=== PATIENT | male | born 1960 | race Caucasian/White ===

== ENCOUNTER 2020-01-05 14:03 | Inpatient (IN) ==
[2020-01-05] MEDS ORDERED: MoRPHine SULFATE 4 MG/ML 1 ML CARP\\VIAL IV STA (14:33)
[2020-01-05] MEDS ORDERED: cefTRIAXone SODIUM 2,000 MG/70 ML BAG IV STA (14:33)
[2020-01-05] MEDS ORDERED: ONDANSETRON INJ 2 MG/ML 2 ML VIAL IV STA ×2 (14:33)
[2020-01-05] MEDS ORDERED: SODIUM CHLORIDE 0.9% 1000ML 1,000 ML IV SCH (14:45)
--- NOTE | 2020-01-05 14:46 | Emergency Department Note ---
Impression & Plan Abscess of chest wall, Cellulitis of chest wall ED Provider Note NAME: PHILIP SOLIZ AGE: 59 SEX: M : 1960 ARRIVES VIA: Walk-In INFORMANT: Patient, ED PROVIDER(S): Marlon James MD Chief Complaint: Infection, chest wall pain HPI: Patient does present as a referral from primary care office due to concern for a chest wall infection. The patient states that he had some pain beginning Sunday that was sharp in nature. He has noticed some redness that developed on Sunday. There was some bleeding on Sunday and Sunday. The patient has taken Tylenol which is only mild improved his discomfort. Patient does describe it is constant and worsened with palpation. The patient denies a history of immun osuppression or diabetes. The patient has not had any true fevers at home or at the primary care's office. ROS: See HPI for pertinent positives and negatives. A total of 10 systems were reviewed and otherwise negative. Past medical history: See below Surgical history: See below Social history: See below Physical Exam: GENERAL: Wearing glasses and a mask, mildly uncomfortable in appearance. NAD, non-toxic. EYE EXAM: Normal conjunctiva. PERRL, no anisocoria and EOM's grossly intact w/o pain. NECK: Supple, no nuchal rigidity, no adenopathy, non-tender. No signs of meningismus. Chest: 12 x 8 cm area of redness with induration that is centralized just lateral to the right nipple, no obvious drainage, mild TTP. No crepitus noted. Small area opening at the inframammary fold approximately quarter by quarter centimeter. No active drainage LUNGS: Clear to auscultation. Normal chest wall mechanics. HEART: NSR, no MRG. ABDOMEN: Abdomen soft, non-tender, normo-active bowel sounds, no masses, no rebound or guarding. BACK: No CVA TTP. SKIN: Cellulitic changes as noted above. UPPER EXTREMITIES: Upper extremities are grossly normal. LOWER EXTREMITIES: Grossly normal, no edema. NEURO EXAM: A&O x3, cranial nerves II-XII grossly intact, normal speech, moves all 4 extremities on command w/o issue. Differential diagnoses: Cellulitis, abscess, MRSA infection, DVT, necrotizing fasciitis, dermatitis, drug eruption, allergic reaction, as well as other pathologies. Course: Patient was seen and evaluated the bedside. Full history physical exam was performed. EKG: None Imaging Studies: Radiology results as stated below per my review in the radiologist's interpretation: Cardiac monitoring: An order was placed for continuous cardiac monitoring. The monitor shows a rate of 89 with sinus rhythm. Procedures: [id number] ultrasound Indication: Review of abscess Upon review the patient does have extensive cobblestoning in an area that does appear well-circumscribed pocket of fluid without vascularity. Impression: Likely abscess Incision & Drainage Indication: Abscess. Location: Right chest Verbal consent was obtained after the risks and benefits were explained, including but not limited to bleeding, scarring, infection, pain, and bone/joint/nerve damage. At this time, the risks of the procedure are less than the risks of NOT performing the procedure. A time out was taken and the correct patient and site identified. The skin was prepped with betadine and a sterile field set. The wound was anesthetized with 4 ml of 1% lidocaine without epinephrine. The abscess cavity was entered with an 18-gauge needle which was aspirated and purulent material expressed. This continued to actively drain along with 3 cc in the syringe. Was sent for wound culture debridement was not performed. Packing placed and a sterile dressing applied. Detailed wound care instructions and signs and symptoms of worsening infection reviewed with the patient. No complications and the patient tolerated the procedure well. MDM: Patient does present from PCP office due to concern for expanding redness over the right chest. Patient did a blood work completed was given IV Rocephin. Asiyr-sg-[id number] ultrasound was completed. Patient did receive pain medication and IV fluids. Patient does have mild white count of 15. INR is slightly elevated at 3.9. Kidney function is unremarkable with trace elevations in AST. I did perform a bedside [id number] ultrasound which showed a likely area of abscess. Given the patient's hypercoagulability I did discuss that we would likely just try and attempting needle aspiration. He is agreeable to this. Patient did tolerate his needle aspiration without complication. I did reassess with an bedside ultrasound which not show any continued obvious pocket of fluid. It is being the overall hospitalist given the extensive cellulitis cellulitis and abscess. Patient was also admitted to the medicine service. The patient did receive vancomycin and Rocephin. Wound culture pending. Past Med/Surg History Medical History (Updated 01/05/20 @ 18:32 by Ashok Mccoy MD) DVT (deep venous thrombosis) History of retinal detachment Surgical History History of colonoscopy History of eye surgery History of lithotripsy History of prostatectomy Status post biopsy of kidney Family History Unknown Diabetes Heart disease Lung cancer History of nephrolithiasis Social History Smoking Status: Never smoker Hx Alcohol Use: Yes current occupational status: employed current occupation: field software engineer Feels Safe at Home: Yes Allergies Allergies Allergy/AdvReac Type Severity Reaction Status Date / Time doxycycline Allergy Intermediate HIVES Verified 01/05/20 15:15 Home Meds Home Medications Medication Instructions Recorded Confirmed cyanocobalamin (vitamin B-12) 0 mcg PO DAILY 01/05/20 01/05/20 [Vitamin B-12] folic acid 1 mg PO DAILY 01/05/20 01/05/20 loratadine [Claritin] 10 mg PO DAILY PRN 01/05/20 01/05/20 multivitamin 1 tab PO DAILY 01/05/20 01/05/20 vit A,C and G-hzlqoj-kkvxlzzg [Eye 1 tab PO DAILY 01/05/20 01/05/20 Health Plus Lutein] warfarin 10 - 11 mg PO UD 01/05/20 01/05/20 Results & Data (ED) Vital Signs Vital Signs - 24 hr 01/05/20 14:07 01/05/20 16:47 01/05/20 17:56 Temperature 36.9 C Temperature Source Oral Pulse Rate 89 Pulse Rate [Right Finger] 75 75 Pulse Rhythm Regular Respiratory Rate 20 22 22 Respiratory Effort / Characteristics Non-Labored Non-Labored Spontaneous Non-Labored Spontaneous Respiratory Depth Normal Normal Normal Respiratory Pattern Regular Regular Regular Blood Pressure 154/94 H Blood Pressure [Right Arm] 150/88 H 161/87 H Blood Pressure Mean 114 Blood Pressure Mean [Right Arm] 108 111 Blood Pressure Position Sitting Blood Pressure Position [Right Arm] Lying Sitting Pulse Oximetry 96 94 96 Oxygen Delivery Method Room Air Room Air Room Air Sepsis Recent Fever Within 48 Hours No Sepsis New/Unexplained Change in Mental Status No Sepsis Action Taken by Nursing No Action Required Home Medications Current Medication List: was personally reviewed by me Laboratory Data Attestation: I reviewed the patient's lab results. Result diagrams: 01/05/20 15:00 01/05/20 14:56 Lab Results 01/05/20 01/05/20 01/05/20 Range/Units 14:56 14:56 14:56 WBC (4.8-10.8) K/uL RBC (4.7-6.1) M/uL Hgb (14.0-18.0) g/dL Hct (42-52) % MCV (80-100) fL MCH (25-34) pg MCHC (32-36) g/dL RDW Std Deviation (36.4-46.3) fL RDW Coeff of Tatiana (11.5-14.5) % Plt Count (130-400) K/uL MPV (7.4-10.4) fL Immature Gran % (Auto) % Neut % (Auto) % Lymph % (Auto) % [place] % (Auto) % Eos % (Auto) % Baso % (Auto) % Neut # (Auto) (1.4-6.5) K/uL Lymph # (Auto) (1.2-3.4) K/uL [place] # (Auto) (0.11-0.59) K/uL Eos # (Auto) (0-0.5) K/uL Baso # (Auto) (0-0.2) K/uL Immature Gran # (Auto) (0.00-0.02) K/uL PT 38.2 H (9.0-12.0) Seconds INR 3.9 H (0.9-1.1) APTT 54.8 H* (21.0-31.0) Seconds PTT Ratio 2.0 Sodium 144 (136-145) mmol/L Potassium 4.4 (3.5-5.1) mmol/L Chloride 110 H (98-107) mmol/L Carbon Dioxide 29 (21-32) mmol/L Anion Gap 5.0 (3-11) BUN 15 (7-18) mg/dl Creatinine 1.13 (0.6-1.4) mg/dl Est Cr Clr Drug Dosing 107.5 ml/min Est GFR ( Amer) 81.4 Est GFR (Non-Af Amer) 70.3 BUN/Creatinine Ratio 12.9 (10-20) Glucose 85 (70-99) mg/dl Lactate 1.0 (0.4-2.0) mmol/L Calcium 8.9 (8.5-10.1) mg/dl Magnesium 2.1 (1.8-2.4) mg/dl Total Bilirubin 0.7 (0.2-1) mg/dl AST 38 H (15-37) U/L ALT 72 (12-78) U/L Alkaline Phosphatase 86 (45-117) U/L Total Protein 7.1 (6.4-8.2) gm/dl Albumin 3.2 L (3.4-5.0) gm/dl Globulin 3.9 (2.5-4.0) gm/dl Albumin/Globulin Ratio 0.8 L (0.9-2) TSH 1.520 (0.300-4.500) uIu/ml 01/05/20 Range/Units 15:00 WBC 15.01 H (4.8-10.8) K/uL RBC 5.11 (4.7-6.1) M/uL Hgb 15.4 (14.0-18.0) g/dL Hct 45.2 (42-52) % MCV 88.5 (80-100) fL MCH 30.1 (25-34) pg MCHC 34.1 (32-36) g/dL RDW Std Deviation 44.4 (36.4-46.3) fL RDW Coeff of Tatiana 13.6 (11.5-14.5) % Plt Count 243 (130-400) K/uL MPV 9.8 (7.4-10.4) fL Immature Gran % (Auto) 0.7 % Neut % (Auto) 65.3 % Lymph % (Auto) 16.4 % [place] % (Auto) 12.5 % Eos % (Auto) 4.8 % Baso % (Auto) 0.3 % Neut # (Auto) 9.81 H (1.4-6.5) K/uL Lymph # (Auto) 2.46 (1.2-3.4) K/uL [place] # (Auto) 1.87 H (0.11-0.59) K/uL Eos # (Auto) 0.72 H (0-0.5) K/uL Baso # (Auto) 0.05 (0-0.2) K/uL Immature Gran # (Auto) 0.10 H (0.00-0.02) K/uL PT (9.0-12.0) Seconds INR (0.9-1.1) APTT (21.0-31.0) Seconds PTT Ratio Sodium (136-145) mmol/L Potassium (3.5-5.1) mmol/L Chloride (98-107) mmol/L Carbon Dioxide (21-32) mmol/L Anion Gap (3-11) BUN (7-18) mg/dl Creatinine (0.6-1.4) mg/dl Est Cr Clr Drug Dosing ml/min Est GFR ( Amer) Est GFR (Non-Af Amer) BUN/Creatinine Ratio (10-20) Glucose (70-99) mg/dl Lactate (0.4-2.0) mmol/L Calcium (8.5-10.1) mg/dl Magnesium (1.8-2.4) mg/dl Total Bilirubin (0.2-1) mg/dl AST (15-37) U/L ALT (12-78) U/L Alkaline Phosphatase (45-117) U/L Total Protein (6.4-8.2) gm/dl Albumin (3.4-5.0) gm/dl Globulin (2.5-4.0) gm/dl Albumin/Globulin Ratio (0.9-2) TSH (0.300-4.500) uIu/ml Administered Medications Discontinued Medications Acetaminophen (Tylenol) 650 mg PO NOW STA Stop: 01/05/20 17:33 Last Admin: 01/05/20 17:52 Dose: 650 mg Documented by: [id number] Sodium Chloride (Nss 1000ml) 1,000 mls @ 999 mls/hr IV .Q1H1M RICARDA Stop: 01/05/20 15:45 Last Infusion: 01/05/20 16:30 Dose: 0 mls/hr Documented by: [id number] Admin: 01/05/20 15:20 Dose: 999 mls/hr Documented by: [id number] Ceftriaxone Sodium (Rocephin) 2,000 mg in 70 mls @ 140 mls/hr IV NOW STA Stop: 01/05/20 15:02 Last Infusion: 01/05/20 15:50 Dose: 0 mls/hr Documented by: [id number] Admin: 01/05/20 15:19 Dose: 140 mls/hr Documented by: [id number] Lidocaine/Epinephrine (Xylocaine/Epinephrine 1%) 20 ml INFIL NOW ONE Stop: 01/05/20 16:07 Last Admin: 01/05/20 16:34 Dose: 20 ml Documented by: [id number] Morphine Sulfate (Morphine Sulfate) 4 mg IV NOW STA Stop: 01/05/20 14:34 Last Admin: 01/05/20 15:19 Dose: 4 mg Documented by: [id number] Morphine Sulfate (Morphine Sulfate) 2 mg IV NOW STA Stop: 01/05/20 17:33 Last Admin: 01/05/20 17:53 Dose: 2 mg Documented by: [id number] Ondansetron HCl (Zofran) 4 mg IV NOW STA Stop: 01/05/20 14:34 Last Admin: 01/05/20 15:19 Dose: 4 mg Documented by: [id number] Ondansetron HCl (Zofran) 4 mg IV NOW STA Stop: 01/05/20 14:34 Last Admin: 01/05/20 15:50 Dose: Not Given Documented by: [id number] Discharge Plan Visit Data Chief Complaint: Infection, Wound Stated Complaint: INFECTION IN RT BREAST,OPEN WOUND ED Provider: Marlon James Discharge Problem: Abscess of chest wall, Cellulitis of chest wall Forms Stand Alone Forms: [facility] Prescriptions Prescriptions: No Action warfarin 10 mg tablet 10 - 11 mg PO UD RF: 0 multivitamin Tablet 1 tab PO DAILY RF: 0 cyanocobalamin (vitamin B-12) [Vitamin B-12] 1,000 mcg Tablet 0 mcg PO DAILY RF: 0 folic acid 1 mg Tablet 1 mg PO DAILY RF: 0 loratadine [Claritin] 10 mg Tablet 10 mg PO DAILY PRN (Reason: Allergy Symptoms) RF: 0 [facility] Lutein 1,000 unit-200 mg-60 unit-2 mg Tablet 1 tab PO DAILY RF: 0
[2020-01-05 15:13] LABS: Basophils # (auto) 0.05 K/uL (0-0.2); Basophils % (auto) 0.3 %; Eosinophils # (auto) 0.72 K/uL (0-0.5); Eosinophils % (auto) 4.8 %; Hematocrit (blood only) 45.2 % (42-52); Hemoglobin 15.4 g/dL (14.0-18.0); Immature Granulocytes % (auto) 0.7 %; Lymphocytes # (auto) 2.46 K/uL (1.2-3.4); Lymphocytes % (auto) 16.4 %; Mean Corpuscular Hemoglobin 30.1 pg (25-34); Mean Corpuscular Hgb Conc 34.1 g/dL (32-36); Mean Corpuscular Volume 88.5 fL (80-100); Mean Platelet Volume 9.8 fL (7.4-10.4); Monocytes # (auto) 1.87 K/uL (0.11-0.59); Monocytes % (auto) 12.5 %; Neutrophils # (auto) 9.81 K/uL (1.4-6.5); Neutrophils % (auto) 65.3 %; Platelet Count 243 K/uL (130-400); RDW Coefficient of Variation 13.6 % (11.5-14.5); RDW Standard Deviation 44.4 fL (36.4-46.3); Red Blood Count 5.11 M/uL (4.7-6.1); White Blood Count 15.01 K/uL (4.8-10.8)
[2020-01-05 15:30] LABS: Albumin Level 3.2 gm/dl (3.4-5.0); BUN Creatinine Ratio 12.9 (10-20); Calcium 8.9 mg/dl (8.5-10.1); Creatinine Clr Calc Pharmacy 107.5 ml/min; Est GFR (African American) 81.4; Est GFR (Non-African American) 70.3; Magnesium 2.1 mg/dl (1.8-2.4); Potassium 4.4 mmol/L (3.5-5.1)
[2020-01-05 15:36] LABS: INR 3.9 (0.9-1.1); Prothrombin Time 38.2 Seconds (9.0-12.0)
[2020-01-05 15:37] LABS: Partial Thromboplastin Time 54.8 Seconds (21.0-31.0)
[2020-01-05 15:39] LABS: Albumin Globulin Ratio 0.8 (0.9-2); Bilirubin,Total 0.7 mg/dl (0.2-1); Globulin 3.9 gm/dl (2.5-4.0); Thyroid Stimulating Hormone 1.52 uIu/ml (0.300-4.500); Total Protein 7.1 gm/dl (6.4-8.2)
[2020-01-05] MEDS ORDERED: LIDOCAINE/EPINEPHRINE 1% 20 ML VIAL INFIL ONE (16:06)
[2020-01-05] MEDS ORDERED: MoRPHine SULFATE 2 MG/ML CARP IV STA (17:32)
[2020-01-05] MEDS ORDERED: ACETAMINOPHEN 325 MG TAB PO STA (17:32)
[2020-01-05] MEDS ORDERED: VANCOMYCIN CONSULT ACTIVE PRN (17:54)
[2020-01-05] MEDS ORDERED: VANCOMYCIN HCL 2,750 MG in SODIUM CHLORIDE 0.9% 500 ML IV ONE (17:54)
--- NOTE | 2020-01-05 17:58 | Electrocardiogram Report ---
Test Reason : Blood Pressure : / mmHG Vent. Rate : 078 BPM Atrial Rate : 078 BPM P-R Int : 176 ms QRS Dur : 098 ms QT Int : 370 ms P-R-T Axes : 029 -18 046 degrees QTc Int : 421 ms Normal sinus rhythm Low voltage QRS Inferior infarct , age undetermined Abnormal ECG When compared with ECG of 21-DEC-2014 07:54, Inferior infarct is now Present Confirmed by Suhas Resendiz ([id number]) on 01/05/2020 5:58:19 PM Referred By: Emelina Clements Confirmed By:Marko Resendiz
--- NOTE | 2020-01-05 18:15 | History & Physical Report ---
Date of Service January 05, 2020 Assessment & Plan (1) Cellulitis of chest wall: Continue ceftriaxone and vancomycin pending cultures from abscess aspiration. (2) Abscess of chest wall: Drained with needle in ER. Consider re-imaging if pain increasing. (3) Obstructive sleep apnea: May use own CPAP at night (4) DVT (deep venous thrombosis): Chronic warfarin with aim 3. Will give 5mg PO today and repeat PTINR in AM. Usually takes 11mg PO twice a week and 10mg all other days. Admission and Anticipated Discharge Date Admission Date: 01/05/2020 History of Present Illness Chief Complaint: Chest wall infection Primary Care Provider: Emelina Clements Albert Pulido is a 59 year old male who presents to the ER with increasing erythema of his right chest wall and breast. He started feeling some mild pain 3 nights prior. No nights ago he started noticing the area becoming increasingly red and the area has just increased and become more painful gradually since. There has been some discharge with bleeding initially yesterday and some pus today. She patient was seen by his PCP today and advised to go to the ER for further management. No history of cellulitis or MRSA infections. Allergies Allergy/AdvReac Type Severity Reaction Status Date / Time doxycycline Allergy Intermediate HIVES Verified 01/05/20 15:15 Home Medications Home Medications Medication Instructions Recorded Confirmed Type cyanocobalamin (vitamin B-12) 0 mcg PO DAILY 01/05/20 01/05/20 History [Vitamin B-12] folic acid 1 mg PO DAILY 01/05/20 01/05/20 History loratadine [Claritin] 10 mg PO DAILY PRN 01/05/20 01/05/20 History multivitamin 1 tab PO DAILY 01/05/20 01/05/20 History vit A,C and G-aahwoc-tebuojrg [Eye 1 tab PO DAILY 01/05/20 01/05/20 History [facility] Plus Lutein] warfarin 10 - 11 mg PO UD 01/05/20 01/05/20 History Past Med/Surg History Medical History (Updated 01/06/20 @ 12:23 by Ashok Mccoy MD) DVT (deep venous thrombosis) History of retinal detachment Obstructive sleep apnea Surgical History History of colonoscopy History of eye surgery History of lithotripsy History of prostatectomy Status post biopsy of kidney Family History Unknown Diabetes Heart disease Lung cancer History of nephrolithiasis Social History Smoking Status: Never smoker Second Hand Exposure: No; Do You Dip or Chew Tobacco: No; Tobacco Cessation Education Requested by Patient: No Hx Alcohol Use: Yes Alcohol type: hard liquor Hx Substance Use: No Preferred Language: Indian Communication Ability: Effective Front Office Java Developer Required: No Beliefs That Will Affect Care: None Current Living Situation: Spouse current occupational status: employed current occupation: application software engineer Other Information That Helps Us Care for You: No Feels Safe at Home: Yes Safety Concerns: Feels Safe At This Time Review of Systems Review of Systems: All systems reviewed & are unremarkable except as noted in HPI & below Physical Exam Constitutional: WD/WN, vitals as above + morbidly obese Eyes: + anicteric sclerae; normal pupil size ENMT: external ear and nose normal, oropharynx normal Neck: trachea midline Respiratory: normal respiratory effort, lungs clear to auscultation Cardiovascular: Rate/Rhythm: regular rate and regular rhythm Extremities: + pedal edema (1+ to mid shins b/l) Gastrointestinal (Abdomen): Inspection/Auscultation: normal bowel sounds Percussion/Palpation: abdomen soft; abdomen nontender, no guarding and abdomen not rigid Musculoskeletal: no cyanosis or clubbing, extremities motor strength 5/5 (cramped calf muscle on left side) Skin: Large erythematous, warm cellulitis area covering right inferior breast tissue originating from under breast tissue with some skin breakdown, very tender to touch Neurologic: moves all extremities and awake; not confused Psychiatric: A+Ox3, euthymic affect Lymphatic: no cervical or axillary lymphadenopathy Results & Data Results & Data ([facility]) Vital Signs (Past 12 Hours) Vital Signs Temp Pulse Pulse Resp BP BP Pulse Ox 01/05/20 17:56 75 22 161/87 H 96 01/05/20 16:47 75 22 150/88 H 94 01/05/20 14:07 36.9 C 89 20 154/94 H 96 Code Status & VTE Plan Code Status Full VTE Prophylaxis Plan VTE Prophylaxis will be ordered: Yes PG Care Time/CCT Total # of Minutes Spent Total Time Spent with Patient: Total time spent is greater than 50% in coordination of care (as documented) at patient's floor/unit and/or counseling patient: Coding Level of Care Code 91601 OBS Care - Level 2 Diagnoses Cellulitis of chest wall L03.313 Abscess of chest wall L02.213 Obstructive sleep apnea G47.33 DVT (deep venous thrombosis) I82.502 Affected thrombotic vein of extremity: unspecified vein of extremity Chronicity: chronic DVT location: lower extremity Laterality: left (1) DVT (deep venous thrombosis) Affected thrombotic vein of extremity: unspecified vein of extremity Chronicity: chronic DVT location: lower extremity Laterality: left Qualified Code(s): I82.502 - Chronic embolism and thrombosis of unspecified deep veins of left lower extremity
[2020-01-05] MEDS ORDERED: MAGNESIUM HYDROXIDE SUSP 30 ML UDC PO PRN (19:44)
[2020-01-05] MEDS ORDERED: ALUMINUM/MAGNESIUM SUSP 30 ML UDC PO PRN (19:44)
[2020-01-05] MEDS ORDERED: ONDANSETRON INJ 2 MG/ML 2 ML VIAL IV PRN (19:44)
[2020-01-05] MEDS ORDERED: WARFARIN SOD 5 MG TAB PO ONE (20:00)
--- NOTE | 2020-01-05 20:09 | Pharmacy Report ---
Pharmacy Abx Dose Short Note - Date of Service January 05, 2020 - Assessment & Plan Assessment 59 year old M receiving Vancomycin for treatment of chest wall cellulitis/abscess Day # 1 of antimicrobial therapy. * Right breast culture pending * Pt BMI greater than 35 Plan Vancomycin for treatment of cellulitis Vancomycin IV * Estimated PK Parameters: Vd 0.6 L/kg, Brandon 0.094 hr-1, t1/2 7.3 hr * Loading dose: 2750 mg (17.5 mg/kg) * Maintenance dose: 2000 mg IV (12.7 mg/kg) every 12 hours * Goal trough level for cellulitis : 10 to 15 mcg/mL * Trough level ordered for 01/07/20 @1330 * A less than traditional dose and extended dosing interval have been selected due to likelihood of drug accumulation in obese patient Pharmacy will continue to follow and will adjust dose/frequency as necessary. Thank you.
[2020-01-05] MEDS ORDERED: OXYCODONE HCL IR 5 MG TAB (IMMEDIATE RELEASE) PO PRN ×2 (20:32)
[2020-01-06] MEDS: ACETAMINOPHEN 325 MG TAB PO PRN ×3 (01:01→17:20)
[2020-01-06] MEDS: VANCOMYCIN HCL 2,000 MG in SODIUM CHLORIDE 0.9% 500 ML IV SCH ×2 (01:41→14:07)
[2020-01-06 07:02] LABS: Basophils # (auto) 0.08 K/uL (0-0.2); Basophils % (auto) 0.6 %; Eosinophils # (auto) 0.83 K/uL (0-0.5); Eosinophils % (auto) 6.4 %; Immature Granulocytes % (auto) 0.8 %; Lymphocytes # (auto) 2.51 K/uL (1.2-3.4); Lymphocytes % (auto) 19.3 %; Mean Corpuscular Hemoglobin 29.6 pg (25-34); Mean Corpuscular Hgb Conc 33.3 g/dL (32-36); Mean Corpuscular Volume 88.8 fL (80-100); Monocytes # (auto) 1.58 K/uL (0.11-0.59); Monocytes % (auto) 12.2 %; Neutrophils # (auto) 7.88 K/uL (1.4-6.5); Neutrophils % (auto) 60.7 %; Platelet Count 212 K/uL (130-400); RDW Coefficient of Variation 13.8 % (11.5-14.5); RDW Standard Deviation 44.9 fL (36.4-46.3); Red Blood Count 5.07 M/uL (4.7-6.1); White Blood Count 12.98 K/uL (4.8-10.8)
[2020-01-06 07:17] LABS: INR 3.2 (0.9-1.1); Prothrombin Time 31.9 Seconds (9.0-12.0)
[2020-01-06 07:43] LABS: BUN Creatinine Ratio 14.3 (10-20); Calcium 8.7 mg/dl (8.5-10.1); Creatinine Clr Calc Pharmacy 128.9 ml/min; Est GFR (African American) 92.2; Est GFR (Non-African American) 79.5; Potassium 4.3 mmol/L (3.5-5.1)
[2020-01-06] MEDS: CYANOCOBALAMIN 500 MCG TABLET (VITAMIN B-12) PO SCH (08:05)
[2020-01-06] MEDS: FOLIC ACID 1 MG TAB PO SCH (08:05)
[2020-01-06] MEDS: MULTIVITAMIN TAB PO SCH (08:05)
[2020-01-06] MEDS: POLYETHYLENE (MIRALAX) 17 GM PACK PO PRN (08:10)
[2020-01-06] MEDS ORDERED: VIT A C AND E LUTEIN MINERALS PO SCH (09:00)
--- NOTE | 2020-01-06 11:57 | Hospitalist Progress Note ---
Date of Service January 06, 2020 Assessment & Plan (1) Cellulitis of chest wall: Continue ceftraixone and vancomycin pending cultures from abscess aspiration. Erythema appears that it has decreased. This has been delineated with a marker with the darker skin in the center also delineated. Once cultures are back, patient aurelio likely be able to switch to PO. If no improvement, may consider surgical consult for further debridement, rhis seems unlikely at this point. (2) Abscess of chest wall: (3) DVT (deep venous thrombosis): Chronic warfarin with aim 3. Will give 5mg PO today and repeat PTINR in AM. Usually takes 11mg PO twice a week and 10mg all other days. Admission and Anticipated Discharge Date Admission Date: January 05, 2020 Subjective 59 yo male reports feeling better. He notes his is changing his pad about every 2 hours. He notices decreased amount of purulent discharge and decreased pain. Review of Systems Review of Systems: All systems reviewed & are unremarkable except as noted in HPI & below Physical Exam Physical Exam: Constitutional: WD/WN, vitals as above + morbidly obese Eyes: + anicteric sclerae; normal pupil size ENMT: external ear and nose normal, oropharynx normal Neck: trachea midline Respiratory: normal respiratory effort, lungs clear to auscultation Cardiovascular: Rate/Rhythm: regular rate and regular rhythm Extremities: + pedal edema (1+ to mid shins b/l) Gastrointestinal (Abdomen): Inspection/Auscultation: normal bowel sounds Percussion/Palpation: abdomen soft; abdomen nontender, no guarding and abdomen not rigid Musculoskeletal: no cyanosis or clubbing, extremities motor strength 5/5 (cramped calf muscle on left side) Skin: Large erythematous, warm cellulitis area covering right inferior breast tissue originating from under breast tissue with some skin breakdown, decreased tenderness to touch Neurologic: moves all extremities and awake; not confused Psychiatric: A+Ox3, euthymic affect Lymphatic: no cervical or axillary lymphadenopathy Results & Data Results & Data ([facility]) Vital Signs (Past 12 Hours) Vital Signs Temp Pulse Resp BP Pulse Ox 01/06/20 06:56 36.7 C 65 20 135/73 94 PG Care Time/CCT Total # of Minutes Spent Total Time Spent with Patient: Total time spent is greater than 50% in coordination of care (as documented) at patient's floor/unit and/or counseling patient: Coding Level of Care Code 05898 Subseq Hosp Care Lvl 3 Diagnoses Cellulitis of chest wall L03.313 Abscess of chest wall L02.213 DVT (deep venous thrombosis) I82.502 Affected thrombotic vein of extremity: unspecified vein of extremity Chronicity: chronic DVT location: lower extremity Laterality: left Time Spent (min) 35 (1) DVT (deep venous thrombosis) Affected thrombotic vein of extremity: unspecified vein of extremity Chronicity: chronic DVT location: lower extremity Laterality: left Qualified Code(s): I82.502 - Chronic embolism and thrombosis of unspecified deep veins of left lower extremity
[2020-01-06] MEDS ORDERED: WARFARIN SOD 10 MG TAB PO ONE (16:00)
[2020-01-06] MEDS: LORATADINE 10 MG TAB PO SCH (16:23)
[2020-01-06] MEDS: cefTRIAXone SODIUM 2,000 MG in DEXTROSE 5% 50 ML IV SCH (16:50)
[2020-01-07] MEDS: VANCOMYCIN HCL 2,000 MG in SODIUM CHLORIDE 0.9% 500 ML IV SCH ×2 (01:56→14:17)
[2020-01-07 03:06] LABS: INR 3.2 (0.9-1.1); Prothrombin Time 31.9 Seconds (9.0-12.0)
[2020-01-07] MEDS: ACETAMINOPHEN 325 MG TAB PO PRN ×2 (03:30→14:24)
[2020-01-07] MEDS: MULTIVITAMIN TAB PO SCH (07:42)
[2020-01-07] MEDS: FOLIC ACID 1 MG TAB PO SCH (07:42)
[2020-01-07] MEDS: CYANOCOBALAMIN 500 MCG TABLET (VITAMIN B-12) PO SCH (07:43)
[2020-01-07] MEDS: POLYETHYLENE (MIRALAX) 17 GM PACK PO PRN (07:43)
--- NOTE | 2020-01-07 11:30 | Surgery Consultation ---
Date of Consultation January 07, 2020 Assessment & Plan (1) Cellulitis of chest wall: 59 year-old male admitted to hospital on Sunday with increasing redness and pain of the right breast/right inframammary chest wall. S/p ultrasound guided aspiration in ED. Cellulitis present, currently on IV Ceftriaxone and Vancomycin. cultures still pending for definitive bacteria present. WBC 12.98K today. Plan: Will order right breast limited ultrasound to evaluate for further abscess collection. If considerable collection present, will likely need incision and drainage and will need reversal of INR. If small collection present and mostly cellulitis would continue IV antibiotics with transition to oral. Will await US results in regards to Coumadin, Dr. Johnson aware of plans NPO after midnight if procedure is needed Continue IV Abx and pain management encourage ambulation (2) Abscess of chest wall: S/p ultrasound guided aspiration in ED cultures still pending Induration of inferior right breast /inframammary crease plan as above Dr. Mooney has seen and examined pt, agrees with above. History of Present Illness Reason for Consultation: Right breast/chest wall abscess Requesting Physician: Zeferino Johnson MD Attending Physician: Zeferino Johnson MD History of Present Illness Albert is a 59 year-old male who presented to emergency department on Sunday with complaint of right breast/chest wall redness and pain that began on Sunday. States he then noticed drainage from the lower breast/chest wall that was bleeding and purulent. States the pain and redness started to increase which prompted PCP evaluation and then ER visit. ER physician drained abscess via ultrasound and needle aspiration. He was admitted to hospital for cellulitis and IV antibiotics. States he had this happen one other time same side about 1 year ago which resolved on its own with use of Neosporin. No recurrent history of skin abscess or MRSA. 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 His INR has been kept around 3 for the last 4 years. INR today 3.2 Allergies Allergy/AdvReac Type Severity Reaction Status Date / Time doxycycline Allergy Intermediate HIVES Verified 01/05/20 15:15 Home Medications Home Medications Medication Instructions Recorded Confirmed Type cyanocobalamin (vitamin B-12) 0 mcg PO DAILY 01/05/20 01/05/20 History [Vitamin B-12] folic acid 1 mg PO DAILY 01/05/20 01/05/20 History loratadine [Claritin] 10 mg PO DAILY PRN 01/05/20 01/05/20 History multivitamin 1 tab PO DAILY 01/05/20 01/05/20 History vit A,C and [id number] [Eye 1 tab PO DAILY 01/05/20 01/05/20 History Health Plus Lutein] warfarin 10 - 11 mg PO UD 01/05/20 01/05/20 History Patient History Medical History (Updated 01/06/20 @ 12:23 by Ashok Mccoy MD) DVT (deep venous thrombosis) History of retinal detachment Obstructive sleep apnea Surgical History History of colonoscopy History of eye surgery History of lithotripsy History of prostatectomy Status post biopsy of kidney Family History Unknown Diabetes Heart disease Lung cancer History of nephrolithiasis Social History Smoking Status: Never smoker Second Hand Exposure: No; Do You Dip or Chew Tobacco: No; Tobacco Cessation Education Requested by Patient: No Hx Alcohol Use: Yes Alcohol type: hard liquor Hx Substance Use: No Preferred Language: Kazakh Communication Ability: Effective Concession Cashier Required: No Beliefs That Will Affect Care: None Current Living Situation: Spouse current occupational status: employed current occupation: embedded software design engineer Other Information That Helps Us Care for You: No Feels Safe at Home: Yes Safety Concerns: Feels Safe At This Time Review of Systems Review of Systems: All systems reviewed & are unremarkable except as noted in HPI & below Physical Exam Constitutional: WD/WN, vitals as above + obese; no acute distress Respiratory: normal respiratory effort Chest (Breasts): Additional Comments: Right breast with cellulitis present, inferior breast midclavicular line there is induration present at site of ultrasound aspiration but unable to palpate discrete fluctuance. There is an open wound with health granulation tissue medial right inframammary fold with no surrounding induration or fluctuance. Skin: no rashes, warm and dry Psychiatric: A+Ox3, euthymic affect Results & Data Vital Signs (Past 12 Hours) Vital Signs Temp Pulse Resp BP Pulse Ox 01/07/20 07:14 36.5 C 57 L 18 139/80 94 01/07/20 04:14 36.6 C 57 L 18 128/70 93 01/06/20 23:45 36.6 C 58 L 18 132/78 95 Laboratory Results 01/07/20 Range/Units 02:18 PT 31.9 H (9.0-12.0) Seconds INR 3.2 H (0.9-1.1)
--- NOTE | 2020-01-07 13:17 | Ultrasound Report ---
ULTRASOUND OF THE RIGHT BREAST CLINICAL HISTORY: Cellulitis. COMPARISON STUDY: Ultrasound of the right breast dated 01/05/2020. FINDINGS: Real-time, grayscale, and color flow sonography of the right breast is performed at the sit e of interest. There is subcutaneous edema identified at the 5 to 7:00 position inferior to the nippl e. A small pocket of fluid at this site measures 2.6 x 1.1 x 2.2 cm. There is a 3 mm linear echogenic reflector within this pocket of fluid with posterior acoustic shadowing. IMPRESSION: 1. Soft tissue edema is noted in the right breast with a 2.6 cm pocket of fluid as detailed above. Th is likely represents cellulitis with phlegmonous change/developing abscess. Clinical correlation will be required. 2. A 3 mm linear echogenic reflector with posterior acoustic shadowing is seen at this site. This cou ld represent a small foreign body, a calcification, or less likely a focus of gas. Consider radiograp hic/mammographic correlation for further assessment. Dictated: 01/07/2020 11:50 AM Transcribed: 01/07/2020 11:58 AM Betsy [id number] [email or web address] Electronically signed by: Clifton Reeves M.D. 01/07/2020 1:16 PM
[2020-01-07] MEDS ORDERED: VANCOMYCIN TROUGH ONE (13:30)
[2020-01-07 13:47] LABS: Creatinine Clr Calc Pharmacy 116.4 ml/min; Est GFR (African American) 81.4; Est GFR (Non-African American) 70.3
[2020-01-07] MEDS ORDERED: SODIUM CHLORIDE 0.9% 250 ML IV PRN (13:59)
--- NOTE | 2020-01-07 13:59 | Hospitalist Progress Note ---
Date of Service January 07, 2020 Assessment & Plan (1) Cellulitis of chest wall: Continue ceftraixone and vancomycin . Cultures nondiagnostic. Appreciate surgery consultation. Chest wall ultrasound results noted. Will reverse Coumadin anticipating surgical incision and drainage and exploration tomorrow. (2) Abscess of chest wall: Drained with needle in ER. Cultures nondiagnostic. Chest ultrasound results noted. General surgery consultation appreciated. (3) DVT (deep venous thrombosis): Chronic warfarin therapy. Admission and Anticipated Discharge Date Admission Date: January 07, 2020 Subjective Surgery consultation was requested. Ultrasound was performed and there is a 2.6 cm fluid collection with the possibility of underlying foreign body. We will go ahead and reverse Coumadin at this point anticipating surgical incision and drainage and exploration tomorrow. Review of Systems Review of Systems: Constitutional-no fever or chills ENT-no blurred vision, no double vision, no epistaxis, no sore throat Respiratory-no cough, no wheezing, no shortness of breath Cardiac-no palpitations, no chest pain, no syncope GI-no nausea, vomiting, diarrhea, melena, hematochezia -no urinary retention, no urinary incontinence, no dysuria, no hematuria Musculoskeletal-no joint pain, no muscle tenderness Skin-no bruising, no rashes, no pruritus Neuro-no isolated weakness, no paresthesia, no weakness Psych-no depression, no anxiety Physical Exam Physical Exam: General-alert and oriented x3, no fevers, no chills HEENT-head atraumatic and normocephalic, TMs intact bilaterally, pupils equal and reactive to light, extraocular muscles intact Neck-no lymphadenopathy or thyromegaly, trachea midline Chest-clear to auscultation percussion. No rales wheezing or rhonchi Cardiac-regular rate and rhythm, normal S1 and S2, no murmurs Abdomen-normal bowel sounds, nontender, no hepatosplenomegaly Extremities-no cyanosis, clubbing, or edema Neuro-cranial nerves II through XII intact, motor and sensory function within normal limits, strength symmetrical 5/5, no focal deficits Psych-normal affect, normal mood Skinextensive erythema along the right breast and inframammary region of the right anterior chest wall. No definite fluctuant areas. No apparent drainage at this time from previous incision and drainage site. Results & Data Results & Data ([facility]) Vital Signs (Past 12 Hours) Vital Signs Temp Pulse Resp BP Pulse Ox 01/07/20 07:14 36.5 C 57 L 18 139/80 94 01/07/20 04:14 36.6 C 57 L 18 128/70 93 Laboratory Results 01/06/20 06:40 01/07/20 13:12 PG Care Time/CCT Total # of Minutes Spent Total Time Spent with Patient: Total time spent is greater than 50% in coordination of care (as documented) at patient's floor/unit and/or counseling patient: Coding Level of Care Code 59990 Subseq Hosp Care Lvl 3 Diagnoses Cellulitis of chest wall L03.313 Abscess of chest wall L02.213 DVT (deep venous thrombosis) I82.502 DVT location: lower extremity Affected thrombotic vein of extremity: unspecified vein of extremity Chronicity: chronic Laterality: left (1) DVT (deep venous thrombosis) DVT location: lower extremity Affected thrombotic vein of extremity: unspecified vein of extremity Chronicity: chronic Laterality: left Qualified Code(s): I82.502 - Chronic embolism and thrombosis of unspecified deep veins of left lower extremity
--- NOTE | 2020-01-07 14:26 | Pharmacy Report ---
Pharmacy Abx Dose Short Note - Date of Service January 07, 2020 - Assessment & Plan Assessment 59 year old M receiving empiric vancomycin + ceftriaxone for treatment of cellulitis/abscess of chest well * Day # 3 of antimicrobial therapy. * Preliminary right breast culture from 01/04 reported probable anaerobic gram negative bacilli * Per surgery: right breast limited ultrasound to evaluate for further abscess collection. If considerable collection present, will likely need incision and drainage Plan Vancomycin * Trough level of 13.1 mcg/mL is therapeutic * Continue dose of 2000 mg ( 12.7 mg/kg) IV every 12 hours * Goal trough level for cellulitis : 10 - 15 mcg/mL * I anticipate level will continue to rise based on patient weight. Will repeat trough level on 01/08 @ 1400. Pharmacy will continue to follow and will adjust dose/frequency as necessary. Thank you.
[2020-01-07] MEDS ORDERED: PHYTONADIONE 10 MG in SODIUM CHLORIDE 0.9% 50 ML IV ONE (14:30)
[2020-01-07] MEDS: LORATADINE 10 MG TAB PO SCH (16:23)
--- NOTE | 2020-01-07 17:27 | Anesthesiology Consultation ---
Date of Service January 07, 2020 Assessment & Plan (1) Encounter for pre-operative examination: Chart Review Chart Review: Acceptable Risk for Surgery (reversing his anticoagulation for this I&D) History Surgery Operation Date: 01/08/20 10:45 Proposed Procedures p Right Cheset Wall Abscess Incision and Drainage - Юлия Mooney MD Height/Weight Height: 6 ft 6 in Weight: 158.8 kg Allergies Allergy/AdvReac Type Severity Reaction Status Date / Time doxycycline Allergy Intermediate HIVES Verified 01/05/20 15:15 Medications Home Medications Medication Instructions Recorded Confirmed Last Taken cyanocobalamin (vitamin B-12) 0 mcg PO DAILY 01/05/20 01/05/20 Unknown [Vitamin B-12] folic acid 1 mg PO DAILY 01/05/20 01/05/20 Unknown loratadine [Claritin] 10 mg PO DAILY PRN 01/05/20 01/05/20 Unknown multivitamin 1 tab PO DAILY 01/05/20 01/05/20 Unknown vit A,C and X-aemfos-jmgzyqgh [Eye 1 tab PO DAILY 01/05/20 01/05/20 Unknown Health Plus Lutein] warfarin 10 - 11 mg PO UD 01/05/20 01/05/20 01/04/20 Active Medications Generic Name Dose Route Start Last Admin Trade Name Freq PRN Reason Stop Dose Admin Acetaminophen 650 mg 01/05/20 19:44 01/07/20 14:24 Tylenol PO 02/04/20 19:43 650 mg Q4H PRN Administration pain/fever Cyanocobalamin 1,000 mcg 01/06/20 09:00 01/07/20 07:43 Vitamin B-12 PO 02/05/20 08:59 1,000 mcg DAILY RICARDA Administration Folic Acid 1 mg 01/06/20 09:00 01/07/20 07:42 Folvite PO 02/05/20 08:59 1 mg DAILY RICARDA Administration Vancomycin HCl 2,000 mg/ 540 mls @ 200 mls/hr 01/06/20 02:00 01/07/20 14:17 Sodium Chloride IV 01/13/20 01:59 200 mls/hr Q12H RICARDA Administration Ceftriaxone Sodium 2,000 mg/ 70 mls @ 100 mls/hr 01/06/20 16:00 01/06/20 17:21 Dextrose IV 01/13/20 15:59 Infused Q24H RICARDA Infusion Protocol Loratadine 10 mg 01/06/20 15:00 01/07/20 16:23 Claritin PO 02/05/20 14:59 10 mg DAILY@1500 RICARDA Administration Multivitamins 1 tab 01/06/20 09:00 01/07/20 07:42 Multivitamin Tab PO 02/05/20 08:59 1 tab DAILY RICARDA Administration Polyethylene Glycol 17 gm 01/05/20 19:44 01/07/20 07:43 Miralax Powder Packet PO 02/04/20 19:43 17 gm DAILY PRN Administration Constipation Past Medical History Medical History (Updated 01/07/20 @ 17:27 by Richi Aranda MD) DVT (deep venous thrombosis) History of retinal detachment Obesity Obstructive sleep apnea Past Family History Family History Unknown Diabetes Heart disease Lung cancer History of nephrolithiasis Past Surgical History Surgical History History of colonoscopy History of eye surgery History of lithotripsy History of prostatectomy Status post biopsy of kidney Social History Smoking Status: Never smoker Do You Dip or Chew Tobacco: No Hx Alcohol Use: Yes Alcohol type: hard liquor alcohol intake frequency: a few times a month Hx Substance Use: No Physical Exam Vital Signs Last Vital Signs Temp 37.0 C 01/07/20 17:22 Pulse 76 01/07/20 17:22 Resp 18 01/07/20 17:22 BP 149/84 H 01/07/20 17:22 Pulse Ox 93 01/07/20 17:22 Testing Laboratory Results 01/06/20 06:40 01/07/20 13:12 PT 31.9 Seconds (9.0-12.0) H 01/07/20 02:18 INR 3.2 (0.9-1.1) H 01/07/20 02:18 APTT 54.8 Seconds (21.0-31.0) H* 01/05/20 14:56 01/05/20 17:59 Gram Stain - Final Breast,Right Deep Wound Culture - Preliminary Probable hailey gram neg bacilli Electrocardiogram Date: 01/05/20 Findings: + NSR @ (78) and + MT (inferior)
[2020-01-07] MEDS: metroNIDAZOLE 500 MG/100 ML BAG IV SCH (18:00)
[2020-01-07] MEDS: cefTRIAXone SODIUM 2,000 MG in DEXTROSE 5% 50 ML IV SCH (18:00)
[2020-01-07] MEDS ORDERED: LOPERAMIDE HCL 2 MG CAP PO PRN (20:13)
[2020-01-08] MEDS: metroNIDAZOLE 500 MG/100 ML BAG IV SCH ×4 (00:08→23:42)
[2020-01-08] MEDS: VANCOMYCIN HCL 2,000 MG in SODIUM CHLORIDE 0.9% 500 ML IV SCH ×2 (02:04→13:45)
[2020-01-08 07:35] LABS: Eosinophils # (auto) 0.73 K/uL (0-0.5); Eosinophils % (auto) 7.7 %; Hematocrit (blood only) 43.2 % (42-52); Hemoglobin 14.2 g/dL (14.0-18.0); Immature Granulocytes # (auto) 0.08 K/uL (0.00-0.02); Immature Granulocytes % (auto) 0.8 %; Lymphocytes # (auto) 2.06 K/uL (1.2-3.4); Lymphocytes % (auto) 21.6 %; Mean Corpuscular Hgb Conc 32.9 g/dL (32-36); Mean Corpuscular Volume 88.3 fL (80-100); Mean Platelet Volume 9.9 fL (7.4-10.4); Monocytes # (auto) 1.27 K/uL (0.11-0.59); Monocytes % (auto) 13.3 %; Neutrophils % (auto) 55.6 %; Platelet Count 232 K/uL (130-400); RDW Coefficient of Variation 13.4 % (11.5-14.5); RDW Standard Deviation 43.4 fL (36.4-46.3); Red Blood Count 4.89 M/uL (4.7-6.1); White Blood Count 9.54 K/uL (4.8-10.8)
[2020-01-08 08:01] LABS: INR 1.3 (0.9-1.1); Prothrombin Time 13.4 Seconds (9.0-12.0)
[2020-01-08 08:09] LABS: Creatinine Clr Calc Pharmacy 132.8 ml/min; Est GFR (African American) 95.5; Est GFR (Non-African American) 82.4
[2020-01-08] MEDS: LACTOBACILLUS ACIDOPHILUS (FLORANEX) TAB PO SCH ×3 (08:36→16:25)
[2020-01-08] MEDS ORDERED: fentaNYL citrate 100 MCG/2 ML VIAL IV PRN (10:17)
[2020-01-08] MEDS ORDERED: ePHEDrine sulfate 50 MG/ML AMP IV PRN (10:17)
[2020-01-08] MEDS ORDERED: ONDANSETRON INJ 2 MG/ML 2 ML VIAL IV PRN (10:17)
[2020-01-08] MEDS ORDERED: HYDROmorphone INJ 2 MG/ML SYR/VIAL IV PRN (10:17)
[2020-01-08] MEDS ORDERED: ATROPINE SULFATE 0.1 MG/ML 10ML SYR IV PRN (10:17)
--- NOTE | 2020-01-08 10:26 | History & Physical Bridge Note ---
Date of Service January 08, 2020 History & Physical Bridge Note I have examined the patient, reviewed the History & Physical and in the interval since the performance of the History & Physical I have noted the following changes of clinical significance: no changes noted
[2020-01-08] MEDS ORDERED: PROPOFOL IV EMULSION 10 MG/ML 20 ML VIAL IV ONE (10:41)
[2020-01-08] MEDS ORDERED: LIDOCAINE HCL 2% 2 ML VIAL/AMP(20MG/ML) INFIL ONE (10:41)
[2020-01-08] MEDS ORDERED: MIDAZOLAM HCL 1 MG/ML 2ML VIAL ONE ×2 (10:42)
[2020-01-08] MEDS ORDERED: fentaNYL citrate 100 MCG/2 ML VIAL ONE (10:42)
[2020-01-08] MEDS ORDERED: SODIUM CHLORIDE 0.9% INJ 10 ML VIAL ONE (11:01)
[2020-01-08] MEDS ORDERED: KETAMINE HCL INJ 50 MG/ML 10 ML VIAL ONE (11:01)
[2020-01-08] MEDS ORDERED: BUPIVACAINE 0.5 % 5 MG/1 ML MPF 30ML VIAL ONE (11:12)
[2020-01-08] MEDS ORDERED: LIDOCAINE HCL 1% 20 ML VIAL ONE (11:12)
[2020-01-08] MEDS ORDERED: BACITRACIN OINT 15 GM TUBE ONE (11:23)
--- NOTE | 2020-01-08 11:30 | Post Operative Brief Note ---
Immediate Post Op Note v1 Date of Surgery January 08, 2020 Pre & Post Diagnosis Operation Date: 01/08/20 10:20pre-op diagnosis: right chest wall abscess Post-op diagnosis: right chest wall abscess I identified the patient and participated in the time-out.: Yes Procedure Operation Date: 01/08/20 10:20 Actual Procedures p Right Cheset Wall Abscess Incision and Drainage(Right) - Юлия Mooney MD Surgeon Юлия Mooney MD Urologist Physician rn surgical pcu Estimated Blood Loss 10 Findings Consistent with Post-Op Diagnosis right chest wall abscess, size 3x4cm, Fluids 400ml Specimens wound culture Anesthesia Type Local Complications none Disposition Accompanied Patient To Recovery: Yes Disposition: Recovery Room Overlapping Procedure I was immediately available: during the entire case.
--- NOTE | 2020-01-08 11:45 | Anesthesiology Progress Note ---
Date of Service January 08, 2020 Anesthesia Post Procedure Vital Signs Vital Signs: Temp Pulse Pulse Pulse Resp BP BP 01/08/20 10:23 36.7 C 62 18 L 18 172/92 H 01/08/20 07:44 36.5 C 55 L 20 01/07/20 22:55 36.5 C 72 18 152/78 H 01/07/20 19:25 36.7 C 69 18 166/71 H 01/07/20 18:25 36.8 C 76 16 152/76 H 01/07/20 17:59 37 C 74 16 155/79 H 01/07/20 17:58 37 C 74 16 155/79 H 01/07/20 17:55 37 C 74 16 155/79 H 01/07/20 17:40 37 C 74 16 155/79 H 01/07/20 17:39 36.8 C 68 18 152/66 H 01/07/20 17:22 37.0 C 76 18 149/84 H 01/07/20 16:14 37 C 71 16 01/07/20 15:34 36.6 C 73 18 149/75 H 01/07/20 15:17 36.6 C 75 18 159/7 H 01/07/20 14:33 36.6 C 71 20 147/62 H BP Pulse Ox 01/08/20 10:23 97 01/08/20 07:44 148/84 H 94 01/07/20 22:55 92 01/07/20 19:25 97 01/07/20 18:25 94 01/07/20 17:59 94 01/07/20 17:58 01/07/20 17:55 94 01/07/20 17:40 94 01/07/20 17:39 94 01/07/20 17:22 93 01/07/20 16:14 162/81 H 93 01/07/20 15:34 92 01/07/20 15:17 93 01/07/20 14:33 94 Pain Intensity Right Chest: Pain Intensity: 5 Transfer of Care Handoff Completed per policy Notes Mental Status: alert / awake / arousable and participated in evaluation Patient Amnestic to Procedure: Yes Nausea / Vomiting: adequately controlled Pain: adequately controlled Airway Patency, RR, SpO2: stable & adequate BP & HR: stable & adequate Hydration State: stable & adequate Anesthetic Complications: no major complications apparent and Pt Satisfied with anesthetic care
--- NOTE | 2020-01-08 12:08 | Operative Report (OR) ---
DATE OF OPERATION: 01/08/2020 PREOPERATIVE DIAGNOSIS: Right chest wall abscess. POSTOPERATIVE DIAGNOSIS: Right chest wall abscess. OPERATION: I and D of right chest wall abscess. SURGEON: Юлия Mooney MD. ANESTHESIA: Conscious sedation plus local. ESTIMATED BLOOD LOSS: About 10 mL. FINDINGS: Abscess, size about 3 x 4 cm. SPECIMEN: Wound culture sent. COMPLICATIONS: None. INDICATIONS FOR THE PROCEDURE: This is a 59-year-old gentleman who was admitted to the hospital for right chest wall abscess and I recommended to do I and D of the right chest wall abscess. I did talk to the patient about the benefit, the risk, alternate procedure. I indicated the risks may include but not limited to such as bleeding, infection, sepsis. The patient understands. He signed informed consent and I answered all questions. DETAILS OF PROCEDURE: We brought the patient to the OR, put the patient in the supine position. The patient received SCD on bilateral legs to prevent DVT. Also, patient received conscious sedation by the anesthesiology and the patient received 1 gram of vancomycin IV for prophylactic antibiotic. The right-sided chest wall was prepped and draped in routine sterile fashion. After time out, I injected local anesthesia by using 1% lidocaine mixed with 0.5% Marcaine around the abscess on the right side chest wall. Then I made about a 3 cm incision on the chest wall abscess on the right side. Then we found the patient has some pus coming out. We did send wound culture and once we cleaned off the pus, the pus cavity about 3 x 4 cm. We tried to find any foreign body and we could not find any of the foreign body at this moment. Hemostasis was obtained. Then, we used a Kerlix with bacitracin for packing the wound and put the dressing on. The patient tolerated the procedure well. All instrument, needle and sponge count were correct x2 at the end of the case and the patient was transferred to recovery room in stable condition. After the procedure, I did talk to the patient and family member about the OR finding and the procedure we did, they understand. I attest to the content of the Intraoperative Record and any orders documented therein. Any exception s are noted below.
--- NOTE | 2020-01-08 13:35 | Hospitalist Progress Note ---
Date of Service January 08, 2020 Assessment & Plan (1) Cellulitis of chest wall: Continue Flagyl, ceftraixone and vancomycin . Cultures done on admission are growing anaerobic gram-negative's. Final identification and sensitivities pending. Appreciate surgery consultation. Chest wall ultrasound results noted. He had I&D of a 3 cm x 4 cm chest wall abscess today. No foreign body found. Coumadin was reversed yesterday with fresh frozen plasma and vitamin K and will be restarted today. (2) Abscess of chest wall: Drained with needle in ER and had more formal I&D procedure today.. Cultures on admission growing anaerobic gram-negative's. Chest ultrasound results noted. General surgery consultation appreciated. (3) DVT (deep venous thrombosis): Chronic warfarin therapy. Coumadin restarted today Admission and Anticipated Discharge Date Admission Date: January 07, 2020 Subjective Alert and oriented postoperatively. He underwent incision and drainage of a 3 cm x 4 cm abscess of the right anterior chest wall. No foreign body found. Gram-negative anaerobe isolated in initial culture obtained in the ED. He is on Alert and oriented postoperatively. He underwent incision and drainage today of a 3 cm x 4 cm right anterior chest wall abscess. No foreign body found. Anaerobic gram-negative's isolated in the first culture done in the ED. He is on Flagyl, Rocephin, vancomycin. Cultures will be tailored once final culture results noted. Hopefully he can go home tomorrow on oral antibiotics. Coumadin was reversed yesterday with fresh frozen plasma and vitamin K. INR 1.3 this morning. He will be restarted on Coumadin today. Review of Systems Review of Systems: Constitutional-no fever or chills ENT-no blurred vision, no double vision, no epistaxis, no sore throat Respiratory-no cough, no wheezing, no shortness of breath Cardiac-no palpitations, no chest pain, no syncope GI-no nausea, vomiting, diarrhea, melena, hematochezia -no urinary retention, no urinary incontinence, no dysuria, no hematuria Musculoskeletal-no joint pain, no muscle tenderness Skin-no bruising, no rashes, no pruritus Neuro-no isolated weakness, no paresthesia, no weakness Psych-no depression, no anxiety Physical Exam Physical Exam: General-alert and oriented x3, no fevers, no chills HEENT-head atraumatic and normocephalic, TMs intact bilaterally, pupils equal and reactive to light, extraocular muscles intact Neck-no lymphadenopathy or thyromegaly, trachea midline Chest-clear to auscultation percussion. No rales wheezing or rhonchi Cardiac-regular rate and rhythm, normal S1 and S2, no murmurs Abdomen-normal bowel sounds, nontender, no hepatosplenomegaly Extremities-no cyanosis, clubbing, or edema Neuro-cranial nerves II through XII intact, motor and sensory function within normal limits, strength symmetrical 5/5, no focal deficits Psych-normal affect, normal mood Skinresolving erythema along the right breast and inframammary region of the right anterior chest wall. Packing in place in the incised and debrided small abscess. Results & Data Results & Data ([facility]) Vital Signs (Past 12 Hours) Vital Signs Temp Pulse Pulse Pulse Resp BP BP 01/08/20 12:36 36.4 C L 58 L 20 149/82 H 01/08/20 12:22 36.5 C 66 20 148/81 H 01/08/20 12:05 36.7 C 58 L 20 136/75 01/08/20 11:55 36.7 C 57 L 18 138/75 01/08/20 11:45 56 L 18 135/77 01/08/20 11:35 36.5 C 70 16 140/76 01/08/20 10:23 36.7 C 62 18 L 18 172/92 H 01/08/20 07:44 36.5 C 55 L 20 148/84 H Pulse Ox 01/08/20 12:36 96 01/08/20 12:22 1 L 01/08/20 12:05 96 01/08/20 11:55 95 01/08/20 11:45 94 01/08/20 11:35 93 01/08/20 10:23 97 01/08/20 07:44 94 Laboratory Results 01/08/20 07:02 01/08/20 07:02 PG Care Time/CCT Total # of Minutes Spent Total Time Spent with Patient: Total time spent is greater than 50% in coordination of care (as documented) at patient's floor/unit and/or counseling patient: Coding Level of Care Code 53560 Subseq Hosp Care Lvl 3 Diagnoses Cellulitis of chest wall L03.313 Abscess of chest wall L02.213 DVT (deep venous thrombosis) I82.502 DVT location: lower extremity Affected thrombotic vein of extremity: unspecified vein of extremity Chronicity: chronic Laterality: left (1) DVT (deep venous thrombosis) DVT location: lower extremity Affected thrombotic vein of extremity: unspecified vein of extremity Chronicity: chronic Laterality: left Qualified Code(s): I82.502 - Chronic embolism and thrombosis of unspecified deep veins of left lower extremity
[2020-01-08] MEDS: CYANOCOBALAMIN 500 MCG TABLET (VITAMIN B-12) PO SCH (13:45)
[2020-01-08] MEDS: MULTIVITAMIN TAB PO SCH (13:45)
[2020-01-08] MEDS: FOLIC ACID 1 MG TAB PO SCH (13:45)
[2020-01-08] MEDS ORDERED: WARFARIN SOD 10 MG TAB PO SCH (16:00)
[2020-01-08] MEDS ORDERED: WARFARIN SOD 5 MG TAB PO SCH (16:00)
[2020-01-08] MEDS ORDERED: WARFARIN SOD 6 MG TAB PO SCH (16:00)
[2020-01-08] MEDS: LORATADINE 10 MG TAB PO SCH (16:22)
[2020-01-08] MEDS: ACETAMINOPHEN 325 MG TAB PO PRN ×2 (16:24→23:01)
[2020-01-08] MEDS: cefTRIAXone SODIUM 2,000 MG in DEXTROSE 5% 50 ML IV SCH (16:42)
[2020-01-09] MEDS: VANCOMYCIN HCL 2,000 MG in SODIUM CHLORIDE 0.9% 500 ML IV SCH (01:53)
[2020-01-09 06:31] LABS: Eosinophils % (auto) 7.2 %; Hematocrit (blood only) 41.5 % (42-52); Hemoglobin 14.4 g/dL (14.0-18.0); Lymphocytes # (auto) 1.88 K/uL (1.2-3.4); Lymphocytes % (auto) 19.3 %; Mean Corpuscular Hemoglobin 30.2 pg (25-34); Mean Corpuscular Hgb Conc 34.7 g/dL (32-36); Mean Platelet Volume 9.8 fL (7.4-10.4); Monocytes # (auto) 1.24 K/uL (0.11-0.59); Monocytes % (auto) 12.7 %; Neutrophils # (auto) 5.74 K/uL (1.4-6.5); Neutrophils % (auto) 58.8 %; Platelet Count 224 K/uL (130-400); RDW Coefficient of Variation 13.3 % (11.5-14.5); RDW Standard Deviation 42.5 fL (36.4-46.3); Red Blood Count 4.77 M/uL (4.7-6.1); White Blood Count 9.76 K/uL (4.8-10.8)
[2020-01-09 06:39] LABS: INR 1.2 (0.9-1.1); Prothrombin Time 12.2 Seconds (9.0-12.0)
[2020-01-09 07:00] LABS: Creatinine Clr Calc Pharmacy 139.9 ml/min; Est GFR (African American) 101.7; Est GFR (Non-African American) 87.8
[2020-01-09] MEDS: CYANOCOBALAMIN 500 MCG TABLET (VITAMIN B-12) PO SCH (08:00)
[2020-01-09] MEDS: FOLIC ACID 1 MG TAB PO SCH (08:00)
[2020-01-09] MEDS: LACTOBACILLUS ACIDOPHILUS (FLORANEX) TAB PO SCH ×2 (08:00→11:47)
[2020-01-09] MEDS: MULTIVITAMIN TAB PO SCH (08:00)
[2020-01-09] MEDS: metroNIDAZOLE 500 MG/100 ML BAG IV SCH (08:07)
--- NOTE | 2020-01-09 08:16 | Anesthesiology Progress Note ---
Date of Service January 09, 2020 Anesthesia Post Procedure Vital Signs Vital Signs: Temp Pulse Pulse Pulse Resp BP BP 01/09/20 07:02 36.9 C 59 L 18 170/82 H 01/08/20 23:08 36.5 C 56 L 18 162/83 H 01/08/20 15:45 36.4 C L 64 16 151/81 H 01/08/20 13:43 36.7 C 65 16 155/90 H 01/08/20 12:36 36.4 C L 58 L 20 149/82 H 01/08/20 12:22 36.5 C 66 20 148/81 H 01/08/20 12:05 36.7 C 58 L 20 136/75 01/08/20 11:55 36.7 C 57 L 18 138/75 01/08/20 11:45 56 L 18 135/77 01/08/20 11:35 36.5 C 70 16 140/76 01/08/20 10:23 36.7 C 62 18 L 18 172/92 H Pulse Ox 01/09/20 07:02 92 01/08/20 23:08 96 01/08/20 15:45 94 01/08/20 13:43 92 01/08/20 12:36 96 01/08/20 12:22 1 L 01/08/20 12:05 96 01/08/20 11:55 95 01/08/20 11:45 94 01/08/20 11:35 93 01/08/20 10:23 97 Notes Mental Status: alert / awake / arousable and participated in evaluation Nausea / Vomiting: adequately controlled Pain: adequately controlled Airway Patency, RR, SpO2: stable & adequate BP & HR: stable & adequate Hydration State: stable & adequate Anesthetic Complications: no major complications apparent
--- NOTE | 2020-01-09 10:22 | Surgery Progress Note ---
Date of Service January 09, 2020 Assessment & Plan (1) Abscess of chest wall: POD # 1 s/p incision and drainage of right chest wall/inframammary abscess -vitals stable, afebrile, leukocytosis resolved - cellulitis much improved - pain improving -ER culture showing gram negative anaerobic bacilli, sensitivities still pending - OR cultures pending Plan: Okay from surgical standpoint for discharge will need wound care center follow-up with wound packing changes starting Sunday01/12/2020 INR and Coumadin management per medicine Transition to oral antibiotics on discharge no need to follow in surgical office unless concerns/questions. (2) Cellulitis of chest wall: plan as above Dr. Mooney has seen and examined pt, agrees with above. Subjective feeling better , had some pain last evening overall, soreness and pain of right chest wall improved no fever, chills or sweats Physical Exam Constitutional: WD/WN, vitals as above + obese; not ill appearing Respiratory: normal respiratory effort; no respiratory distress Chest (Breasts): Additional Comments: Right chest wall with improved cellulitis and inframammary incision with packing present. Some induration still present superior to incision and tenderness to palpation. Psychiatric: A+Ox3, euthymic affect Results & Data Vital Signs (Past 12 Hours) Vital Signs Temp Pulse Pulse Resp BP Pulse Ox 01/09/20 07:02 36.9 C 59 L 18 170/82 H 92 01/08/20 23:08 36.5 C 56 L 18 162/83 H 96
[2020-01-09] MEDS ORDERED: VANCOMYCIN TROUGH ONE (13:30)
[2020-01-09] MEDS: ACETAMINOPHEN 325 MG TAB PO PRN (13:33)
--- NOTE | 2020-01-09 13:54 | Pharmacy Report ---
Pharmacy Abx Dose Short Note - Date of Service January 09, 2020 - Assessment & Plan Assessment 59 year old M receiving Vanco/CTX/Metronidazole for treatment of cellulitis/abscess of chest wall Day # 5 of antimicrobial therapy. Plan Vancomycin * Trough level of 14.6 mcg/mL is therapeutic * Based on c/s data vanco likely not needed. D/W hospitalist; patient is to discharge home today on Augmentin Pharmacy will continue to follow and will adjust dose/frequency as necessary. Thank you.
[2020-01-09] MEDS ORDERED: metroNIDAZOLE 500 MG TAB PO SCH (14:00)
--- NOTE | 2020-01-09 14:20 | Discharge Summary ---
Date of Service January 09, 2020 Admission HPI Per Admitting Provider Albert Pulido is a 59 year old male who presents to the ER with increasing erythema of his right chest wall and breast. He started feeling some mild pain 3 nights prior. No nights ago he started noticing the area becoming increasingly red and the area has just increased and become more painful gradually since. There has been some discharge with bleeding initially yesterday and some pus today. She patient was seen by his PCP today and advised to go to the ER for further management. No history of cellulitis or MRSA infections. Principal Diagnosis Pt feels improved. He does have pain related to his incision site, but it is better. Redness is also better. Pt denies fever, SOB, chest pain, abd pain, n/v/c/d, LE pain or swelling. Tolerating PO without issue. Discharge Exam Constitutional WD/WN, vitals as above Eyes normal visual duffy by confrontation and + anicteric sclerae Neck normal visual inspection and trachea midline Respiratory normal respiratory effort, lungs clear to auscultation Cardiovascular Rate/Rhythm: regular rate and regular rhythm Gastrointestinal (Abdomen) Inspection/Auscultation: abdomen not distended Percussion/Palpation: abdomen soft; abdomen nontender Musculoskeletal Head/Neck/Chest: normocephalic and head atraumatic Skin no rashes, warm and dry bandaging around incision site is clean and dry Neurologic awake; not confused Speech / Cognition: normal speech Psychiatric A+Ox3, euthymic affect Discharge Data Allergies Allergy/AdvReac Type Severity Reaction Status Date / Time doxycycline Allergy Intermediate HIVES Verified 01/05/20 15:15 Consultations 01/05/20 17:08 ED Decision to Admit Stat 01/07/20 09:26 Consult General Surgery Routine Procedures Performed Operation Date: 01/08/20 10:20 Actual Procedures p Right [place] Wall Abscess Incision and Drainage(Right) - Юлия Mooney MD Ordered Studies 01/05/20 14:48 US point of care ultrasound Stat 01/07/20 10:26 US breast RT limited Routine Hospital Course (1) Cellulitis of chest wall: Continue Flagyl, ceftraixone and vancomycin . Cultures done on admission are growing anaerobic gram-negative bacilli with no sensitivities to follow. I&D of a 3 cm x 4 cm chest wall abscess on 01/07. No foreign body found. Coumadin was reversed prior to OR with fresh frozen plasma and vitamin K Pt was on ceftriaxone, vanco, flagyl during admission Transitioned to augmentin to finish course as outpt, can add doxy and bactrim if further concerns (2) Abscess of chest wall: Drained with needle in ER on 01/04 and had more formal I&D 01/07. 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 Anshul Gonzalez given risk of recurrent DVT to be balanced with bleeding of surgical site risk Total Time Total Time Spent Total Time Spent (In Minutes): >30 Total Time Includes: Examination of the Patient, Discharge Planning, Medication Reconciliation, Communication With Other Providers and Other Discharge Plan Discharge Items Patient Disposition: Home - Self-Care Reason For Visit: CELLULITIS, CHEST WALL ABSCESS Discharge Diagnosis: Chest wall cellulitis with abscess Activity: As commented below Activity Comment: As per surgery Bathing: Keep incision dry Bathing Comment: No showers until advised allowable by surgery or wound care Non-emergency contact: Primary Care Provider and Surgeon Call non-emergency contact if: you have any medication questions, your symptoms worsen, your wound has increased redness, your wound has increased drainage and your wound pain has increased Follow-up/Referrals: Emelina Clements CRNP [Primary Care Provider] - Diet: Regular Addtl Attending Provider Instructions: You will follow up with Wound Care on 01/11 at 9:15a You will take coumadin 15mg today and the next two days. You will have an INR checked on 01/11 You will need to use the lovenox injections twice a day until your INR has been between 2-3 for 48 hours. As we discussed, antibiotics can cause your coumadin levels to become too high. Please call your primary care if you notice unusual bleeding. Your blood pressures were a bit high during your admission, which could have been due to your illness. You should check your blood pressures daily over the next week and take these readings with your to your next appts with your primary care. Pending Studies at Discharge: Yes Studies:: Wound culture final results Stand-Alone Forms: [facility], Smoking Cessation Medications and DC Order Prescriptions: New amoxicillin-pot clavulanate [Augmentin] 875-125 mg tablet 1 tab PO Q12H Qty: 28 RF: 0 enoxaparin [Lovenox] 80 mg/0.8 mL syringe 80 mg SQ Q12H Qty: 8 RF: 0 Continued warfarin 10 mg tablet 10 - 11 mg PO UD RF: 0 multivitamin Tablet 1 tab PO DAILY RF: 0 cyanocobalamin (vitamin B-12) [Vitamin B-12] 1,000 mcg Tablet 0 mcg PO DAILY RF: 0 folic acid 1 mg Tablet 1 mg PO DAILY RF: 0 loratadine [Claritin] 10 mg Tablet 10 mg PO DAILY PRN (Reason: Allergy Symptoms) RF: 0 Eye Health Plus Lutein 1,000 unit-200 mg-60 unit-2 mg Tablet 1 tab PO DAILY RF: 0 Discharge Orders: Discharge Order (Routine); Ordered 01/09/20 Ordered By: Marilin Cole Admission Data Admit Date/Time: 01/07/20 11:15 Attending Provider: Marilin Cole Admit Provider: Ashok Mccoy Primary Care Provider: Emelina Clements Other Providers: Ashok Mccoy ; Юлия Mooney Other Interventions: Discharge Summary Assessment (RN) Last Done: 01/09/20 14:20 DC Date/Time DO NOT enter until pt leaves facility: 01/09/20 14:55 Coding Level of Care Code D/C Day Management >30 mins Diagnoses Cellulitis of chest wall L03.313 Abscess of chest wall L02.213 DVT (deep venous thrombosis) I82.502 Affected thrombotic vein of extremity: unspecified vein of extremity Chronicity: chronic DVT location: lower extremity Laterality: left
[2020-01-09] MEDS ORDERED: WARFARIN SOD 10 MG TAB PO SCH (16:00)
== END 2020-01-09 14:55 | disposition home or self-care (01) | DRG 603 ==
LOC: ED 14:03 → 2W 14:03 → SUATTDRO 18:30 → 2W 19:15 → SUATTDRO 01-07 11:15 → 2W 01-07 16:05

== ENCOUNTER 2024-12-25 12:14 | Observation (INO) ==
--- NOTE | 2024-12-08 11:15 | PAT Medication Instructions ---
Medication Instructions Date of Service December 08, 2024 Home Medications cyanocobalamin (vitamin B-12) 1,000 mcg tablet (Vitamin B-12) 1,000 mcg PO DAILY loratadine 10 mg tablet (Claritin) 10 mg PO DAILY multivitamin 1 tab PO DAILY folic acid 800 mcg tablet 0.8 mg PO DAILY [id number] 5 mg-zeaxanth 1 mg-bilberry 7.5 mg-herbal capsule (Macular Health Formula) 1 cap PO DAILY rosuvastatin 5 mg tablet (Crestor) 5 mg PO DAILY guaifenesin 600 mg tablet, extended release 12 hr (Mucinex) 600 mg PO UD PRN ipratropium bromide 21 mcg (0.03 %) nasal spray 2 spray intranasal BID rivaroxaban 20 mg tablet (Xarelto) 20 mg PO DAILY omega-3 fatty acids-fish oil 300 mg-500 mg capsule (Fish Oil) 1 cap PO DAILY acetaminophen 650 mg tablet,extended release 1,300 mg PO UD PRN ibuprofen 200 mg tablet (Advil) 200 mg PO UD PRN triamcinolone acetonide 0.1 % topical cream 1 applic topical UD PRN Continue as directed rosuvastatin 5 mg tablet (Crestor) 5 mg PO DAILY acetaminophen 650 mg tablet,extended release 1,300 mg PO UD PRN(if needed) ASK your surgeon for instructions ibuprofen 200 mg tablet (Advil) 200 mg PO UD PRN ASK your prescriber and surgeon rivaroxaban 20 mg tablet (Xarelto) 20 mg PO DAILY(in order for spinal or epidural anesthesia, Xarelto needs to be stopped 72 hours/3 days before surgery. Please check if okay with doctor that prescribes this to you) STOP taking 2 weeks before surgery (or as soon as possible if surgery is within 2 weeks) omega-3 fatty acids-fish oil 300 mg-500 mg capsule (Fish Oil) 1 cap PO DAILY STOP taking 24 hours before surgery triamcinolone acetonide 0.1 % topical cream 1 applic topical UD PRN DO NOT take the morning of surgery cyanocobalamin (vitamin B-12) 1,000 mcg tablet (Vitamin B-12) 1,000 mcg PO DAILY loratadine 10 mg tablet (Claritin) 10 mg PO DAILY multivitamin 1 tab PO DAILY folic acid 800 mcg tablet 0.8 mg PO DAILY pzomtqnk-qsw-ssiztk 5 mg-zeaxanth 1 mg-bilberry 7.5 mg-herbal capsule ([employer] Health Formula) 1 cap PO DAILY guaifenesin 600 mg tablet, extended release 12 hr (Mucinex) 600 mg PO UD PRN Take morning of surgery With a small sip of water, OTHERWISE NOTHING TO EAT OR DRINK AFTER MIDNIGHT: ipratropium bromide 21 mcg (0.03 %) nasal spray 2 spray intranasal BID Take evening before surgery ipratropium bromide 21 mcg (0.03 %) nasal spray 2 spray intranasal BID Other Notes If you have any questions please call us at [phone] or [phone] or [phone] or [phone]
--- NOTE | 2024-12-10 15:02 | Anesthesiology Consultation ---
Date of Service December 10, 2024 Assessment & Plan (1) Encounter for pre-operative examination: Chart Review Chart Review: Acceptable Risk for Surgery (pending surgeon ordered PCP clearance ) and Patient seen in Pre Admission Testing - Awaiting PCP clearance 12/12/24 ([facility]- Dr. Burgos)- please fax preop testing for review (labs, 07/2024 EKG and CXR) - Patient is NOT an ideal OPJ candidate (currently 23 hour obs) Per PAT appt on 12/10/24, no recent illness/disease exposures, illness related symptoms, or recent illness/disease positive tests. Will leave to surgeon's di scretion if preop Covid testing needed I&D Right Chest Wall Abscess 01/08/20= Done under MAC Teaching & Discussion Pre-Anesthesia Teaching/Discussion Notes: Instructed NPO after midnight before surgery,except medications with 15 cc of water. Medication instructions provided according to the PAT guidelines. History Surgery Operation Date: 12/25/24 11:20 Proposed Procedures p Left Total Knee Arthroplasty - Raj Castillo MD Height/Weight Height: 6 ft 1 in Weight: 125 kg Allergies Allergy/AdvReac Type Severity Reaction Status Date / Time doxycycline Allergy Unknown HIVES Verified 12/08/24 07:52 Medications Home Medications Medication Instructions Recorded Confirmed Last Taken cyanocobalamin (vitamin B-12) 1,000 mcg PO DAILY 01/05/20 12/08/24 10/12/20 12:00 1,000 mcg tablet (Vitamin B-12) loratadine 10 mg tablet (Claritin) 10 mg PO DAILY 01/05/20 12/08/24 10/12/20 12:00 multivitamin 1 tab PO DAILY 01/05/20 12/08/24 10/12/20 12:00 folic acid 800 mcg tablet 0.8 mg PO DAILY 10/05/20 12/08/24 10/12/20 12:00 dwblactw-znr-aciagy 5 mg-zeaxanth 1 cap PO DAILY 10/05/20 12/08/24 10/12/20 12:00 1 mg-bilberry 7.5 mg-herbal capsule (Macular Health Formula) rosuvastatin 5 mg tablet (Crestor) 5 mg PO DAILY 10/05/20 12/08/24 10/12/20 12:00 guaifenesin 600 mg tablet, 600 mg PO UD PRN Cough 10/06/20 12/08/24 10/12/20 12:00 extended release 12 hr (Mucinex) ipratropium bromide 21 mcg (0.03 2 spray intranasal BID 02/13/22 12/08/24 Unknown %) nasal spray rivaroxaban 20 mg tablet (Xarelto) 20 mg PO DAILY 02/13/22 12/08/24 Unknown omega-3 fatty acids-fish oil 300 1 cap PO DAILY 11/21/22 12/08/24 Unknown mg-500 mg capsule (Fish Oil) acetaminophen 650 mg 1,300 mg PO UD PRN Pain 12/08/24 12/08/24 Unknown tablet,extended release ibuprofen 200 mg tablet (Advil) 200 mg PO UD PRN Pain 12/08/24 12/08/24 Unknown triamcinolone acetonide 0.1 % 1 applic topical UD PRN Skin 12/08/24 12/08/24 Unknown topical cream Irritation Past Medical History Medical History (Updated 12/11/24 @ 08:22 by Ciera Lam PA-C) 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 on Xarelto Factor 5 Leiden mutation, heterozygous on Xarelto Fatty liver blood tests results a lot better last few years per pt History of anesthesia reaction with prostate sx- had prolonged intubation due to positioning during procedure- remembers waking up with breathing tube in and remembers them taking it out. [facility] 06/2011 per pt. History of COVID-19 (06/2024) no hx hospitalization- no residual symptoms History of DVT (deep vein thrombosis) multiple times in hx. left leg. first occurence prior to 1992 , most recent was yrs ago per pt. on Xarelto History of glomerulonephritis or nephrotic syndrome/dx details unclear , both dx were identified as potential causes of kidney failure 1977. History of prostate cancer diagnosed 2009--sx only History of renal failure (1977) no hx dialyis. no re-occurence of kidney failure. Hyperlipidemia borderline - well controlled with Crestor 5mg Kidney stones currently have present, no known problems with at current. pt reports upcoming CT scan 12/10/24 for microscopic blood in urine ([facility]). Macular degeneration of both eyes Microscopic hematuria - A/P CT scan 12/10/24 [facility]. On anticoagulant therapy xarelto daily Sleep apnea cpap Temporomandibular joint disorder tmj not dx, grind my teeth per pt: wears mouth guard at night Exercise / Class Metabolic Activity II 4-5 Yardwork/Stairs/Walk up hill (one flight of stairs - no chest pain or SOB) Past Family History Family History Unknown Diabetes Heart disease Lung cancer History of nephrolithiasis Father Family history of diabetes mellitus Grandmother (Paternal) Family history of diabetes mellitus Grandfather (Maternal) Family history of esophageal cancer Other No family history of adverse response to anesthesia Past Surgical History Surgical History History of colonoscopy History of esophagogastroduodenoscopy (EGD) History of eye surgery repair of left retinal tear History of laparoscopic cholecystectomy History of lithotripsy x4 History of prostate biopsy malignant History of prostatectomy (06/2011) History of surgery (2019) hx chest infection for somethimg like infected pimples/cellulitis. hx sx for and had follow up wound care. History of tonsillectomy History of urologic surgery (12/2011) repaired urethra due to scar tissue. History of vasectomy (1992) History of wisdom tooth extraction Status post biopsy of kidney x2 Past Anesthesia History No Hx of Anesthesia Complications (prolonged intubation with prostatectomy due to position of surgery-emergence from anesthesia with intubation tube still in ) and No Family Hx of Anesthesia Complications History of PONV No Hx of PONV and Hx of Motion Sickness Social History Smoking Status: Never smoker Do You Dip or Chew Tobacco: No Hx Alcohol Use: Yes (hx , stopped a couple yrs ago) Alcohol type: wine and hard liquor alcohol intake frequency: a few times a week Hx Substance Use: No substance use type: does not use Review of Systems Patient denies chest pain, shortness of breath, dyspnea on exertion, reflux, cough, wheezing, palpitations. No hx of seizures, stroke, ND. No hx of blood transfusions Physical Exam Vital Signs VITALS BP 149/83 P 54 TEMP 98.4 SP02 96% RESP 16 Constitutional no acute distress ENMT Mouth: no TMJ clicking Thyromental Distance: > or= 3.5 Finger Breadths (3.5) Mallampati Class: III Crowns to molars Bridges - to side teeth and molars (permanent) Neck + limited neck extension Respiratory normal respiratory effort; no respiratory distress Auscultation: lungs clear to auscultation bilaterally; no wheezes Cardiovascular Rate/Rhythm: regular rate and regular rhythm Heart Sounds: no murmur Vessels: no carotid bruit Heart sounds mildly diminished Musculoskeletal Spine: no pain with cervical ROM Extremities: extremities normal to inspection Psychiatric Orientation: alert Lab Results Anesthesia Preop Results Results Anesthesia Widget: WBC 8.46 K/ul (4.8-10.8) 12/10/24 Hgb 14.9 g/dl (14.0-18.0) 12/10/24 Hct 43.9 % (42.0-52.0) 12/10/24 Plt 211 K/uL (130-400) 12/10/24 Na 139 mmol/L (136-145) 12/10/24 K 4.0 mmol/L (3.5-5.1) 12/10/24 Cl 105 mmol/L (98-107) 12/10/24 CO2 31 mmol/L (21-32) 12/10/24 BUN 15 mg/dl (6-23) 12/10/24 Creat 0.82 mg/dl (0.6-1.4) 12/10/24 Glucose Level 82 mg/dl (70-99(Fasting)) 12/10/24 PT 11.1 Seconds (9.0-12.0) 12/10/24 PTT 28 Seconds (21-31) 12/10/24 INR 1.0 (0.9-1.1) 12/10/24 Urine Color Yellow 12/10/24 Urine Appearance Clear (Clear) 12/10/24 Urine pH 7.5 (4.5-7.5) 12/10/24 Urine Specific [place] 1.038 (1.000-1.030) H 12/10/24 Urine Protein Negative (Negative) 12/10/24 Urine Glucose (UA) Negative (Negative) 12/10/24 Urine Ketones Negative (Negative) 12/10/24 Urine Blood Trace (Negative) H 12/10/24 Urine Nitrite Negative (Negative) 12/10/24 Urine Bilirubin Negative (Negative) 12/10/24 Urine Urobilinogen Negative (Negative) 12/10/24 Urine Leukocyte Esterase Negative (Negative) 12/10/24 Urine WBC (Auto) 0-5 /hpf (0-5) 12/10/24 Urine RBC (Auto) 6-10 /hpf (0-2) H 12/10/24 Urine Hyaline Casts (Auto) 0-2 /lpf (0-2) 12/10/24 Urine Epithelial Cells (Auto) 0-2 /hpf (0-2) 12/10/24 Urine Bacteria (Auto) None Seen (None Seen) 12/10/24 Blood Type B Positive 12/10/24 Antibody Screen NEGATIVE 12/10/24 Testing Electrocardiogram Date: 07/23/24 Findings: + NSR @ (60bpm) Left axis deviation Possible inferior infarct, age undetermined (Inferior infarct noted on Jan 05, 2020 EKG; patient will be seeing PCP for clearance 12/12/24; no current cardiac symptoms or limitations) Chest X-Ray Date: 12/10/24 No evidence of active lung lesion. Mild thoracic spondylosis. Other Testing Abdomen/Pelvis CT 12/10/24= Bilateral nephrolithiasis. No ureteral calculi or hydronephrosis. No upper tract urothelial lesions. No discrete bladder lesion by CT. No acute process within the abdomen or pelvis.
[~2024-12-25 12:14] MED LIST: BUPIVACAINE 0.5 % 5 MG/1 ML PF 10ML VIAL ONE; EPINEPHrine INJ 1 MG/ML AMP ONE; PROPOFOL IV EMULSION 10 MG/ML 100 ML VIAL IV ONE; ROPIVACAINE 0.5% 5 MG/ML 30 ML VIAL ONE
[2024-12-25] MEDS: FAMOTIDINE 20 MG TAB PO SCH (12:38)
[2024-12-25] MEDS: ACETAMINOPHEN 500 MG TAB PO SCH ×2 (12:38→21:33)
[2024-12-25] MEDS: CeleBREX 200 MG CAP PO SCH ×2 (12:38→21:32)
[2024-12-25] MEDS: LR 60ML/HR IV SCH (12:39)
[2024-12-25] MEDS: LR 500ML BOLUS, THEN 15ML/HR IV SCH (12:39)
[2024-12-25] MEDS: dexAMETHasone**PF** 10 MG/ML VIAL IV SCH (12:39)
[2024-12-25] MEDS ORDERED: MIDAZOLAM HCL 1 MG/ML 2ML VIAL ONE (13:22)
[2024-12-25] MEDS ORDERED: LIDOCAINE 2% 2 ML VIAL/AMP(20MG/ML) INFIL ONE (13:22)
[2024-12-25] MEDS ORDERED: ATROPINE SULFATE 0.1 MG/ML 10ML SYR IV PRN (14:08)
[2024-12-25] MEDS ORDERED: NALOXONE HCL 0.4 MG/1 ML VIAL/CARP IV PRN ×2 (14:08→16:33)
[2024-12-25] MEDS ORDERED: ONDANSETRON INJ 2 MG/ML 2 ML VIAL IV PRN ×2 (14:08→16:33)
[2024-12-25] MEDS ORDERED: FLUMAZENIL 0.1 MG/1 ML 10 ML VIAL IV PRN (14:08)
--- NOTE | 2024-12-25 14:15 | History & Physical Bridge Note ---
Date of Service December 25, 2024 History & Physical Bridge Note I have examined the patient, reviewed the History & Physical and in the interval since the performance of the History & Physical I have noted the following changes of clinical significance: no changes noted
[2024-12-25] MEDS: ceFAZolin 3000MG 3,000 MG/72.5 ML BAG IV SCH (14:46)
[2024-12-25] MEDS: ORTHO JOINT ANESTHETIC ONE (15:19)
[2024-12-25] MEDS: ROPIV 0.5% 246mg, Ketorolac 30mg, EPINEPHrine 0.5mg in NSS INFIL SCH (15:45)
[2024-12-25] MEDS: TRANEXAMIC ACID 1,000 MG x 1 **TOPICAL Use Intraop TOP SCH (15:46)
--- NOTE | 2024-12-25 16:20 | Operative Report ---
Post Operative Report Pre & Post Diagnosis Operation Date: 12/25/24 13:40 Pre-Op Diagnosis: Left Knee Osteoarthritis Post-Op Diagnosis: Left Knee Osteoarthritis I identified the patient and participated in the time-out.: Yes Procedure Operation Date: 12/25/24 13:40 Actual Procedures p Left Total Knee Arthroplasty, Cemented(Left) - Raj Castillo MD Surgeon Raj Castillo MD Slab Conditioner Supervisor EVELYN Gonzalez PA-C. No resident or fellow was available to assist. Estimated Blood Loss 150 Findings Consistent with Post-Op Diagnosis Specimens Left knee bone and soft tissue contents Anesthesia Type Spinal MAC Complications none Disposition Disposition: Recovery Room Indications 64-year-old male, with left knee osteoarthritis refractory to conservative management including nonsteroidal anti-inflammatory medications, activity modification, weight loss, corticosteroid and viscosupplementation injections, physical therapy, and others. X-rays demonstrate varus malalignment, near [id number] arthritis in the medial knee and tricompartmental osteophyte formation. I had a long discussion with the patient about his diagnosis and treatment options. Having failed extensive nonsurgical management he is now a candidate for surgery. I reviewed the risks and benefits of surgery, alternatives to surgery, and expected outcomes. After reviewing all these he elected to proceed with surgery. All questions were answered. Informed consent was signed. Description of Procedure Patient was identified in the preoperative holding area where the surgical site, left knee, was marked. Spinal anesthetic was placed by anesthesia. Patient was brought back to the operating room, placed on the operating room table, and IV sedation was administered. A bump was placed underneath the ipsilateral hip. All bony prominences were padded. Perioperative antibiotics were administered. Exam under anesthesia was performed. This demonstrated range of motion arc from 8 to 105 degrees. Stable to varus and valgus stress testing at 30 degrees. The surgical site was prepped and draped in the normal sterile fashion. Prior to incision a multidisciplinary timeout was called. All in the room were in agreement. We began by exsanguinating the limb with an Esmarch bandage. Tourniquet was inflated to 250 mmHg. A 16 cm long incision was made over the anterior aspect of the knee. I dissected through the subcutaneous tissues to the level of the fascia. Full-thickness flaps were raised above the fascia. A median parapatellar arthrotomy was made. Half the fat pad was excised. A medial release was performed with Bovie electrocautery on the proximal tibia. Synovitis in the knee and suprapatellar pouch was removed. The patella was then everted and held with 2 towel clips. The thickness of the patella was measured at 25 mm. Patellar resection was performed. Caliper showed the patella thickness now to be 15 mm. A size 41 trial was placed and had a great fit. The 3 drill holes were placed then the trial button was placed. The patellar thickness was now 25 mm which I was very happy with. The patellar trial was then removed, and the knee was flexed up. Retractors were placed to protect the MCL and LCL. Osteophytes were removed from the femoral condyles and intercondylar notch. The ACL and PCL were excised. Intramedullary drill guide was drilled into the femur. Distal femoral cutting guide was placed set at 5 degrees of valgus to resect 11 mm off the distal femur. Distal femoral resection was made without difficulty. The tibia was then exposed. The lateral meniscus was sharply excised. The tibial cutting jig was positioned in line with the tibial shaft in the coronal plane and with 3 degrees of posterior slope in the sagittal plane to resect 4 mm off the more involved medial compartment. The jig was then pinned in position and the tibial cut was made. We then brought the knee into full extension. Lamina spreaders were placed. The medial meniscus was excised. The extension block was then placed for 5 mm thickness poly. This gave us full extension and excellent stability to varus and valgus stress. Next the extension block was removed, the knee was flexed up, collateral ligaments were protected, and the epicondylar axis and Whitesides line were marked out on the distal femoral cut. Femoral sizing guide was placed. External rotation was set at 3 degrees so that the posterior cut would be parallel with the epicondylar axis and perpendicular with Whitesides line. The patient sized to a size 8 femur. 2 pins were then placed through the jig into the distal femur. The jig was removed and the appropriately sized 4-in-1 cutting jig was placed over the pins, then fixated to the bone using threaded, headed pins. We confirmed that we would not notch the femur with our anterior cut. Our 4 cuts were then made. The cutting jig was removed. The flexion block was then placed with the knee held at 90 degrees. There was excellent stability to varus and valgus at 90 degrees with no gapping medially or laterally. Next the box cutting jig was placed on the distal femur. The box cut was made and the femoral trial was impacted into position. Lug holes were drilled in the distal femur. We then reexposed the tibia. The tibia was sized to a 8 for a fixed bearing component and pinned in external rotation on the cut tibial surface. The intramedullary drill followed by the keel punch were used to prepare the tibia. The tibial tray with a 5 mm thickness polyethylene liner was placed and the knee was brought through a full range of motion. There was excellent stability to varus valgus stress throughout a full range of motion, which was approximately 0-125 degrees. Next the trial components were removed. I then injected the posterior capsule and periosteum with the periarticular injection cocktail. The bone cuts were then irrigated and dried while the cement was mixed on the back table. The femoral component was cemented on first. Excess cement was removed. A lap sponge was placed over the femoral component for protection, then the tibia was subluxated anteriorly. The all polyethylene tibial component was then cemented in place. Again excess cement was removed. The knee was brought into full extension and held there until the cement cured. The patella was cemented and clamped. Dilute Betadine solution was then allowed to soak in the knee while the cement cured. Once the cement was fully cured, the knee was irrigated out, the tourniquet was let down and meticulous hemostasis was ensured. I then soaked the knee with a topical solution containing 1 g of tranexamic acid. The knee was brought through a full range of motion. I was were very happy with the patella tracking and the stability. We then began to close. Interrupted 0 Vicryl suture was used to repair the patellar retinaculum in [id number] fashion. The quadriceps and patellar tendons were run with #1 Vicryl. The deep dermal layer was closed with interrupted 2-0 Vicryl. Dermabond and Zipline was used for the skin, followed by a Silverlon dressing. A compressive Ankur wrap was placed and the knee was placed into a knee immo bilizer. Patient's sedation was lifted and was transferred to recovery room in stable condition. Summary of implants: Depuy Attune Posterior Stabilized Cemented Femur, size 8 left Attune All-polyethylene tibial component, posterior stabilized 5 mm thickness, size 8 Attune patella medialized dome, size 41 2 batches of Palacos bone cement Postoperative course: Patient will be admitted to the floor overnight for pain control and monitoring. Weightbearing as tolerated with a walker with no knee range of motion for 48 hours. Aspirin for DVT prophylaxis. I attest to the content of the Intraoperative Record and any orders documented therein. Any exceptions are noted below.
[2024-12-25] MEDS ORDERED: KETOROLAC 30 MG/ML VIAL ONE (16:21)
--- NOTE | 2024-12-25 16:30 | Operative Report ---
Post Operative Report Pre & Post Diagnosis Operation Date: 12/25/24 13:40 Pre-Op Diagnosis: Left Knee Osteoarthritis Post-Op Diagnosis: Left Knee Osteoarthritis I identified the patient and participated in the time-out.: Yes Procedure Operation Date: 12/25/24 13:40 Actual Procedures p Left Total Knee Arthroplasty, Cemented(Left) - Raj Castillo MD Surgeon Raj Castillo MD Tank Car Repairer EVELYN Gonzalez PA-C. No resident or fellow was available to assist. Estimated Blood Loss 150 Findings Consistent with Post-Op Diagnosis Specimens left knee bone and soft tissue Description of Procedure I was present during the entire case assisting with positioning, prepping, draping, wound retraction, wound closure, dressing and immobilizer placement. No fellow present. Please see Dr. Castillo procedure note for specifics of the case. I attest to the content of the Intraoperative Record and any orders documented therein. Any exceptions are noted below.
[2024-12-25] MEDS ORDERED: HYDROmorphone INJ 0.5 MG/0.5 ML SYR IV PRN (16:33)
[2024-12-25] MEDS ORDERED: MAGNESIUM HYDROXIDE SUSP 30 ML UDC PO PRN (16:33)
[2024-12-25] MEDS ORDERED: diphenhydrAMINE 50 MG/ML VIAL IV PRN (16:33)
[2024-12-25] MEDS ORDERED: TAMSULOSIN HCL 0.4 MG CAP PO PRN (16:33)
[2024-12-25] MEDS ORDERED: ALUMINUM/MAGNESIUM SUSP 30 ML UDC PO PRN (16:33)
[2024-12-25] MEDS ORDERED: METOCLOPRAMIDE HCL INJ 5 MG/ML 2 ML VIAL IV PRN (16:33)
--- NOTE | 2024-12-25 17:03 | XRay Report ---
Clinical History: Postoperative examination 2 views of the left knee are submitted for review. Comparison is made to the prior examination dated 12/12/2024 Findings: There is a new left knee total arthroplasty in expected position. Some air is seen within the joint space. No definite fracture is seen. No other osseous abnormality is identified. There are no radiopaque foreign bodies. Impression: New left knee replacement Electronically signed by Jose Armando Hedrick 12-25-2024 5:02 PM
--- NOTE | 2024-12-25 17:19 | Anesthesiology Progress Note ---
Date of Service December 25, 2024 Anesthesia Post Procedure Vital Signs Vital Signs: Temp Pulse Pulse Resp BP BP Pulse Ox 12/25/24 17:10 36.3 C L 52 L 14 118/66 97 12/25/24 17:00 57 L 14 133/67 94 12/25/24 16:50 51 L 15 129/67 95 12/25/24 16:40 48 L 15 131/71 95 12/25/24 16:33 36.4 C L 56 L 13 127/64 91 12/25/24 12:27 36.6 C 71 20 153/86 H 96 O2 Del Method O2 Flow Rate 12/25/24 17:10 Nasal Cannula 2 12/25/24 17:00 Oxymask 9 12/25/24 16:50 Oxymask 15 12/25/24 16:40 Oxymask 15 12/25/24 16:33 Oxymask 15 12/25/24 12:27 Room Air Pain Intensity Left Knee: Pain Intensity: 5 Left Back: Pain Intensity: 3 Transfer of Care Handoff Completed per policy Notes Mental Status: alert / awake / arousable Patient Amnestic to Procedure: Yes Nausea / Vomiting: adequately controlled Pain: adequately controlled Airway Patency, RR, SpO2: stable & adequate BP & HR: stable & adequate Hydration State: stable & adequate Anesthetic Complications: no major complications apparent
[2024-12-25] MEDS ORDERED: IBUPROFEN 200 MG TAB PO PRN (18:24)
[2024-12-25] MEDS ORDERED: TRIAMCINOLONE ACET 0.1% CR 15 GM TUBE TOP PRN (18:24)
[2024-12-25] MEDS ORDERED: guaiFENesin 600 MG TABCR PO PRN (18:24)
[2024-12-25] MEDS: Scopolamine CHECK PATCH PLACEMENT SCH (18:44)
[2024-12-25] MEDS: KETOROLAC TROMETHAMINE 15 MG/ML VIAL IV SCH (18:44)
[2024-12-25] MEDS: SODIUM CHLORIDE 0.9% 1,000 ML IV SCH (18:45)
[2024-12-25] MEDS: DOCUSATE SODIUM 100 MG CAP PO SCH (21:33)
[2024-12-25] MEDS: SENNA 8.6 MG TAB PO SCH (21:33)
[2024-12-25] MEDS: IPRATROPIUM BROMIDE NASAL SPRAY 0.03% 30 ML SCH (21:34)
[2024-12-25 22:39] VITALS: RESP 18
[2024-12-26 03:29] VITALS: TEMP 97.9
[2024-12-26 06:09] LABS: Hematocrit (blood only) 37.8 % (42.0-52.0); Hemoglobin 12.9 g/dl (14.0-18.0); Mean Corpuscular Hemoglobin 29.7 pg (25.0-34.0); Mean Corpuscular Volume 87.1 fL (80.0-100.0); Platelet Count 186 K/uL (130-400); RDW Standard Deviation 40.1 fL (36.4-46.3); Red Blood Count 4.34 M/uL (4.70-6.10); White Blood Count 20.75 K/ul (4.8-10.8)
[2024-12-26 06:27] LABS: Anion Gap 6.0 (3-11); Blood Urea Nitrogen 24.0 mg/dl (6-23); Calcium 8.7 mg/dl (8.6-10.3); Carbon Dioxide 25.0 mmol/L (21-32); Chloride 110.0 mmol/L (98-107); Creatinine Clr Calc Pharmacy 107.9 ml/min; Glucose 122.0 mg/dl (70-99(Fasting)); Potassium 4.5 mmol/L (3.5-5.1); Sodium 141.0 mmol/L (136-145)
[2024-12-26 07:22] VITALS: BP 121/65; PULSE 66; O2SAT 94
[2024-12-26] MEDS: FOLIC ACID 400 MCG TAB PO SCH (08:36)
[2024-12-26] MEDS: dexAMETHasone 10 MG in SYRINGE 0 ML IV SCH (08:36)
[2024-12-26] MEDS: ROSUVASTATIN CALCIUM 5 MG TAB PO SCH (08:37)
[2024-12-26] MEDS: LORATADINE 10 MG TAB PO SCH (08:37)
[2024-12-26] MEDS: CYANOCOBALAMIN (B-12) 500 MCG TABLET PO SCH (08:37)
[2024-12-26] MEDS: MULTIVITAMIN TAB PO SCH (08:37)
[2024-12-26] MEDS: OMEGA-3 (PURIFIED FISH OIL) 1 GM CAP PO SCH (08:37)
[2024-12-26] MEDS: CEROVITE ADV FORMULA TAB PO SCH (08:37)
[2024-12-26] MEDS ORDERED: NON-FORMULARY MEDICATION (Multivitamin Tablet) PO SCH (09:00)
--- NOTE | 2024-12-26 09:48 | Orthopedic Progress Note ---
Date of Service December 26, 2024 Assessment & Plan (1) S/P total knee arthroplasty: Plan: PT/OT Weightbearing as tolerated with walker assistance Ice with easy wrap Immobilizer use x 48 hours Keep Silverlon dressing in place Pain control with p.o. medication DVT prophylaxis with Xarelto and HEATH stockings Plan is to discharge home today with in-home physical therapy Follow-up at [facility] orthopedics as previously scheduled With questions contact our clinic at [phone] Admission and Anticipated Discharge Date Admission Date: December 25, 2024 Subjective This 64-year-old male is day 1 status post left total knee arthroplasty. Patient states he is doing very well. States that his pain is well-controlled with the p.o. pain medication. He is very anxious to be discharged home. He states that he plans on doing his own physical therapy for the first 2 weeks for transitioning to outpatient PT. Currently he denies chest pain, shortness of breath, fever, chills, sweats, nausea, vomiting, diarrhea, difficulty voiding or numbness or tingling in his left lower extremity Review of Systems Review of Systems: All systems reviewed & are unremarkable except as noted in Subjective Physical Exam Physical Exam: Left knee: Immobilizer and operative dressing removed. Silverlon dressing is clean dry and intact left in place. Patient is able to perform active straight leg raise test. He is able to actively dorsi and plantarflex his foot. Active knee range of motion is from 0 degrees of extension to 85 degrees of flexion. His quad strength is 4 out of 5. He is able to easily transition from a seated to a standing position with the assistance of his walker. He is neurovascularly intact in the left lower extremity. Results & Data Vital Signs (Past 12 Hours) Vital Signs Temp Pulse Pulse Resp BP Pulse Ox O2 Del Method 12/26/24 07:17 36.6 C 66 18 121/65 94 Room Air 12/26/24 03:28 36.6 C 68 18 118/69 97 Room Air 12/25/24 22:38 67 18 118/69 97 CPAP Diagnostic Findings Laboratory Results WBC 20.75 K/ul (4.8-10.8) H 12/26/24 05:40 RBC 4.34 M/uL (4.70-6.10) L 12/26/24 05:40 Hgb 12.9 g/dl (14.0-18.0) L 12/26/24 05:40 Hct 37.8 % (42.0-52.0) L 12/26/24 05:40 MCV 87.1 fL (80.0-100.0) 12/26/24 05:40 MCH 29.7 pg (25.0-34.0) 12/26/24 05:40 MCHC 34.1 g/dL (32.0-36.0) 12/26/24 05:40 RDW Std Deviation 40.1 fL (36.4-46.3) 12/26/24 05:40 RDW Coeff of Tatiana 12.7 % (11.5-14.5) 12/26/24 05:40 Plt Count 186 K/uL (130-400) 12/26/24 05:40 MPV 10.5 fL (9.4-12.4) 12/26/24 05:40 Sodium 141 mmol/L (136-145) 12/26/24 05:40 Potassium 4.5 mmol/L (3.5-5.1) 12/26/24 05:40 Chloride 110 mmol/L (98-107) H 12/26/24 05:40 Carbon Dioxide 25 mmol/L (21-32) 12/26/24 05:40 Anion Gap 6 (3-11) 12/26/24 05:40 BUN 24 mg/dl (6-23) H 12/26/24 05:40 Creatinine 0.94 mg/dl (0.6-1.4) 12/26/24 05:40 Est Cr Clr Drug Dosing 107.9 ml/min 12/26/24 05:40 eGFR 89.96 12/26/24 05:40 BUN/Creatinine Ratio 25.5 (10-20) H 12/26/24 05:40 Glucose 122 mg/dl (70-99(Fasting)) H 12/26/24 05:40 Calcium 8.7 mg/dl (8.6-10.3) 12/26/24 05:40 Impressions Knee X-Ray 12/25/24 16:33 Clinical History: Postoperative examination 2 views of the left knee are submitted for review. Comparison is made to the prior examination dated 12/12/2024 Findings: There is a new left knee total arthroplasty in expected position. Some air is seen within the joint space. No definite fracture is seen. No other osseous abnormality is identified. There are no radiopaque foreign bodies. Impression: New left knee replacement Electronically signed by Jose Armando Hedrick 12-25-2024 5:02 PM
--- NOTE | 2024-12-26 09:58 | Discharge Summary ---
Date of Service December 26, 2024 Admission HPI Per Admitting Provider History of Present Illness Albert Pulido is a 64-year-old male who presents to the clinic today for history and physical examination. He is scheduled for left total knee arthroplasty with Dr. Castillo at [facility]. Patient has had progressive left knee pain and has been following with Dr. Castillo. He has tried viscosupplementation as well as multiple corticosteroid injections in the knee and those modalities are not providing him with any pain relief at this point. He recently met with Dr. Castillo and elected to proceed with the above procedure. Patient recently met with PAT as well as his primary care provider for PCP clearance appointment. He does have a history of blood clots in the past. History of factor V Leiden as well as MTHFR mutation and is on Xarelto. Patient denies any other acute health concerns. No fevers, chills, chest pain, shortness of breath, abdominal pain, nausea, vomiting, or urinary symptoms. History of prostate cancer, resolved. No history of allergy to metal/nickel, MRSA infection, or diabetes. Admission Exam Per Admitting Provider Physical Exam Vitals & Measurements T: 36.5 C HR: 64 (Monitored) BP: 130/84 SpO2: 97% HT: 182.5 cm WT: 126.4 kg WT: 126.400 kg (Dosing) BMI: 37.95 BMI: 37.95 kg/m2 CONSTITUTIONAL: well developed, well nourished. resting comfortably in no distress. pleasant. EARS: tm's without erythema or bulging. canals without erythema or edema. EYES: PERRL. conjunctiva normal MOUTH: oropharynx clear. No acute dental infections appreciated. CARDIOVASCULAR: regular rate and rhythm. no murmurs, rubs, or gallops RESPIRATORY: no tachypnea. lungs clear to auscultation bilaterally ABDOMEN: normal bowel sounds MUSCULOSKELETAL: Focus on the left lower extremity: Left knee ROM: 5 to 105 Medial joint line tenderness Mild lateral joint line tenderness Skin intact Stable to varus and valgus at 30 No rash on left knee NEUROLOGIC: no gross deficits Principal Diagnosis Left knee osteoarthritis Discharge Exam Left knee: Immobilizer and operative dressing removed. Silverlon dressing is clean dry and intact left in place. Patient is able to perform active straight leg raise test. He is able to actively dorsi and plantarflex his foot. Active knee range of motion is from 0 degrees of extension to 85 degrees of flexion. His quad strength is 4 out of 5. He is able to easily transition from a seated to a standing position with the assistance of his walker. He is neurovascularly intact in the left lower extremity. Discharge Data Allergies Allergy/AdvReac Type Severity Reaction Status Date / Time doxycycline Allergy Unknown HIVES Verified 12/25/24 12:33 Procedures Performed Operation Date: 12/25/24 13:40 Actual Procedures p Left Total Knee Arthroplasty, Cemented(Left) - Raj Castillo MD Ordered Studies 12/25/24 05:00 US - OR guided needle placemen Routine Hospital Course (1) S/P total knee arthroplasty: Patient had an uneventful overnight stay following left total knee arthroplasty. He is very pleased with the results of the surgery. He states that he will be doing in-home physical therapy for the first 2 weeks postoperatively. He will resume his Xarelto for DVT prophylaxis. PT/OT Weightbearing as tolerated with walker assistance Ice with easy wrap Immobilizer use x 48 hours Keep Silverlon dressing in place Pain control with p.o. medication DVT prophylaxis with Xarelto and HEATH stockings Plan is to discharge home today with in-home physical therapy Follow-up at [facility] orthopedics as previously scheduled With questions contact our clinic at [phone] Total Time Total Time Spent Total Time Spent (In Minutes): 25 mins Discharge Plan Discharge Items Patient Disposition: Home - Home Health Services Reason For Visit: Left Knee Osteoarthritis Discharge Diagnosis: s/p left total knee arthroplasty Activity: As commented below Lifting: None Bathing: Keep incision dry Bathing Comment: May shower today Sexual Activity: Wait until after follow-up appointment Exercise/Sports: Wait until after follow-up appointment Driving/Machine Use: No driving until cleared by client technical specialist Weightbearing: Left weightbearing Weightbearing Comment: As tolerated with walker assistance and immobilizer x 48 hours Non-emergency contact: Surgeon Call non-emergency contact if: you have any medication questions, your pain is not controlled, your temperature is above 101.5, your wound has increased drainage and your wound pain has increased Follow-up/Referrals: Marce Rodriguez PA-C [Primary Care Provider] - Diet: Regular Addtl Attending Provider Instructions: Post-operative Instructions Dear Patient and Family/Friends, Before you are discharged from the hospital, it is important to know what to expect when you get home after surgery. To that end, we have created this sheet of discharge instructions which covers many commonly asked questions. Make sure you go through this sheet in its entirety with your nurse before you are discharged. Please note that we will go over the specifics of your surgery and recovery when you return for your first post-operative visit. Sincerely, Dr. Castillo Medications 1. Oxycodone 5 mg: Take 1 to 2 tablets every 4-6 hours as needed for postoperative pain control. A prescription of this medication will be sent to your pharmacy. 2. Xarelto 20 mg: Resume your normal regimen of Xarelto for DVT prophylaxis 3. Diclofenac sodium 75 mg: Take 1 tablet twice daily for the first 2 weeks postoperatively. This prescription will be sent to your pharmacy with a refill. 4. Extra strength Tylenol 500 mg: Take 2 tablets every 6-8 hours as needed for additional pain relief. Please purchase this medication. Pain Expect to be in a fair amount of pain after surgery. Remember, our goal is not to eliminate your pain, but to make it tolerable. It is a good idea to stay ahead of your pain by taking the medications you were prescribed once you get home. Typically, the pain starts improving 3-7 days after surgery. You should start weaning off the narcotic pain medication (oxycodone, hydrocodone, hydromorphone, morphine) as soon as your pain improves. Please call our office if your pain is not adequately controlled. Ice Ice your operative site at least 5 times a day for 15-30 minutes at a time. Make sure you have a thin cloth between the ice or cooling unit and your skin to prevent roa bite. This is especially important if you received a nerve block. Continue icing your operative site for the first 5-7 days after surgery, then as needed. Diet/Nausea/Vomiting Start by drinking clear liquids and eating crackers. If you can tolerate this, then you may resume your normal diet. If you feel nauseated or vomit, take Zofran/ondansetron (if prescribed). Please call our office if you have intractable nausea or vomiting, or, if after hours, you may go to the Emergency Room for help. Constipation Constipation is a common side effect of narcotic pain medication. If you have not had a bowel movement within 2 days after surgery, we recommend purchasing an over the counter laxative such as Milk of Magnesia, Dulcolax, or Miralax from a local pharmacy, and taking it as instructed. Call our clinic if any questions. Slings and Braces If you were placed in a sling or brace, it must be worn at all times, including sleep. You may remove your sling or brace for physical therapy, home exercises, and showering. The length of time you will be in your brace and range of motion restrictions depends on what surgery you had; these details will be reviewed at your first post-operative appointment. Nerve block The anesthesia team sometimes places a nerve block to help with post-operative pain control. This results in significant numbness and inability to move the extremity. The nerve block usually wears off in 8-12 hours, but sometimes can last up to 24 hours. Please call our office if you are still unable to move your extremity after 24 hours, unless you received a pain pump to take home. Nerve blocks typically wear off quickly, so start taking pain medication as soon as you start feeling soreness near your surgical site. Weight bearing and Range of Motion. Do not bear any weight through your operative extremity immediately after surgery. If you had upper extremity surgery, do not lift anything with that arm. If you are in a knee brace, keep it locked in place until your follow-up. We will discuss your weight bearing, range of motion, and lifting restrictions in detail at your first post-operative appointment. Continuous Passive Motion (CPM) Machine If you were prescribed a CPM machine, it will start after your first post- operative appointment, at which time we will give you instructions on the range of motion settings and duration of treatment Physical therapy You will be given a prescription for physical therapy or occupational therapy at your first post-operative appointment. Typically, patients start therapy within 1 week of surgery Wound care and showering We will inspect your wound at your first post-operative visit, and may do a dressing change at that time. Most patients will be in a water-proof dressing that is removed 14 days after surgery. It is normal to see some dried blood on the dressing. Do not remove your dressing, paper strips or sutures yourself unless you are given permission. Showering is allowed the day after surgery. Do not scrub or remove any dressings. The wound should not be submerged underwater (i.e. in a bathtub or pool) until 4 weeks after surgery HEATH stockings If you were given white stockings, these are to be worn at all times except to shower (on both legs) for the first 2 weeks after surgery. Driving You may not drive while taking narcotic pain medication or while in a cast, splint, sling or brace. You, the patient, need to make the final determination about when you are safe to drive, however, the earliest you may consider driving after surgery is below: Hand/Wrist/Elbow Surgery: 3 days Shoulder Surgery: 2 weeks Hip,/Knee/Ankle Surgery: 4 weeks Fracture repair: 6 weeks Return to Work Your return to work depends on what surgery was done and what type of work you do. Please bring any paperwork your employer needs completed to your first post-operative visit. Also, bring a description of your job duties, as this helps us to understand what risks you may face at work. Travel Avoid long distance travel (greater than 1 hour) in airplanes and cars for the first 6 weeks after surgery. If you must travel, you need to have a Doppler ultrasound done before you travel to rule out a blood clot in your legs. Follow-up You should have a follow-up appointment already scheduled 1-2 days after surgery. If not, please contact our office to make this appointment before you leave the hospital. When to call the office It is normal to have swelling and bruising in the limb that was operated on. This will improve with time. It is also normal to have fevers for the first 2 days after surgery. Reasons you should call your doctor include: Uncontrolled pain; Nausea, vomiting, or constipation that does not improve with medication; Fevers over 101.5, chills, sweats; Drainage or bleeding from the wound; Foul odor; Spreading areas of redness; Any other concerns. Contact Information Please call Dr. Castillo's office at [phone] with any concerns. Pending Studies at Discharge: No Stand-Alone Forms: My [facility] [employer] Medications and DC Order Prescriptions: New acetaminophen [Tylenol Extra Strength] 500 mg Tablet 1,000 mg PO Q8 30 Days Qty: 180 0RF oxycodone 5 mg Tablet 5 - 10 mg PO Q4H MDD Max 6/day PRN (Reason: Post op pain control) Qty: 28 0RF diclofenac sodium 75 mg tablet,delayed release (DR/EC) 75 mg PO BID 14 Days Qty: 28 1RF Continued guaifenesin [Mucinex] 600 mg tablet extended release 12hr 600 mg PO UD PRN (Reason: Cough) Patient Comments: no use in awhile Xarelto 20 mg tablet 20 mg PO DAILY Patient Comments: afternoon hours Rx Instructions: must administer with evening meal ipratropium bromide 21 mcg (0.03 %) spray,non-aerosol 2 spray intranasal BID Patient Comments: at current using once daily, prescribed as 2 sprays twice daily Rx Instructions: administer into each nostril Fish Oil 300-500 mg capsule 1 cap PO DAILY Patient Comments: afternoon hours , 1000 mg multivitamin Tablet 1 tab PO DAILY Patient Comments: afternoon hours cyanocobalamin (vitamin B-12) [Vitamin B-12] 1,000 mcg Tablet 1,000 mcg PO DAILY Patient Comments: afternoon hours loratadine [Claritin] 10 mg Tablet 10 mg PO DAILY Patient Comments: afternoon hours folic acid 800 mcg Tablet 0.8 mg PO DAILY Patient Comments: afternoon hours Macular Health Formula 5-1-7.5 mg Capsule 1 cap PO DAILY Patient Comments: afternoon hours rosuvastatin [Crestor] 5 mg Tablet 5 mg PO DAILY Patient Comments: afternoon hours triamcinolone acetonide 0.1 % Cream 1 applic TOPICAL UD PRN (Reason: Skin Irritation) Discontinued acetaminophen [Tylenol Arthritis] 650 mg Tablet Extended Release 1,300 mg PO UD PRN (Reason: Pain) ibuprofen [Advil] 200 mg Tablet 200 mg PO UD PRN (Reason: Pain) Chen[place]/Other Patient Handouts: Knee Replace Home Recovery, Knee Replace Control Swelling Admission Data Admit Date/Time: 12/25/24 16:33 Attending Provider: Raj Castillo Admit Provider: Raj Castillo Primary Care Provider: Marce Rodriguez Other Providers: [facility],Referral Center; [facility],Home Healthcare Other Interventions: Discharge Summary Assessment (RN) Last Done: 12/26/24 11:01
[2024-12-26] MEDS ORDERED: RIVAROXABAN 20 MG TAB PO SCH (16:30)
[2024-12-28] MEDS ORDERED: Scopolamine REMOVE TRANSDERM PATCH ONE (08:00)
== END 2024-12-26 11:28 | disposition home health service (06) ==
LOC: 3E 12:14 → ASU 12:14